=== PATIENT | male | born 1955 | race Caucasian/White ===

== ENCOUNTER 2018-06-28 10:40 | Day surgery (SDC) | payer OTHER ==
[2018-06-28] MEDS ORDERED: Ringers Lactate 1,000 ML IV ONE (11:04)
[2018-06-28] MEDS ORDERED: CEFAZOLIN 1GM (PREMIX IV) 1 GM/50 ML BAG ONE (11:04)
[2018-06-28 11:10] LABS: Absolute Monocytes 0.7 K/uL (0.1-1.3); Absolute Neutrophil 2.5 K/uL (1.8-8.0); Basophils % 0.8 % (0-1.3); Eosinophils % 1.3 % (0-4.4); Hematocrit 43.2 % (39.6-49.0); Lymphocytes % 24.2 % (15.3-44.8); MPV 10.1 fL (7.6-11.3); Monocytes % 15.4 % (3.3-12.3); RBC Red Blood Cell Count 4.16 M/uL (4.33-5.43)
[2018-06-28 11:24] LABS: BUN Blood Urea Nitrogen 12 mg/dL (7-18); Bicarbonate 27 mmol/L (21-32); Glucose Level 82 mg/dL (74-106); Potassium 4.3 mmol/L (3.5-5.1); Sodium Level 137 mmol/L (136-145)
--- NOTE | 2018-06-28 12:48 | EKG ---
Test Date: 2018-06-28 Test Time: 10:56:34 [facility]: [facility] MEASUREMENT RESULTS: Intervals: Rate: 49 DE: 146 QRSD: 86 QT: 460 QTc: 415 [place]: P: 75 DE: 146 QRS: 47 T: 72 INTERPRETIVE STATEMENTS: Marked sinus bradycardia Abnormal ECG Compared to ECG 01/02/2012 11:38:24 Sinus rhythm no longer present Electronically Signed On 06-28-18 12:47:19 RN BARIATRIC by Julian Dixon
[2018-06-28] MEDS ORDERED: PROPOFOL 200 MG/20 ML VIAL IV ONE (13:15)
[2018-06-28] MEDS ORDERED: FENTANYL CITR 100 MCG/2 ML ONE ×2 (13:16→13:45)
[2018-06-28] MEDS ORDERED: MIDAZOLAM HCL 2 MG/2 ML INJ ONE (13:16)
[2018-06-28] MEDS ORDERED: ONDANSETRON 4 MG/2 ML VIAL ONE (13:16)
[2018-06-28] MEDS ORDERED: LIDOCAINE 1% MPF 2 ML AMPULE ONE (13:16)
--- NOTE | 2018-06-28 14:03 | P.BOP ---
Preoperative diagnosis: left 1st metacarpal fracture Postoperative diagnosis: same Primary procedure: left 1st metacarpal crpp Estimated blood loss: <3ccs Anesthesia: General Complications: None Transferred to: Recovery Room Condition: Good
[2018-06-28] MEDS: MEPERIDINE HCL 50 MG/ML AMP ONE ×6 (14:10→14:40)
--- NOTE | 2018-06-28 14:21 | RAD REPORT ---
EXAM DESCRIPTION: RAD - Finger-Thumb Left - 06/28/2018 2:00 pm FINDINGS: Left thumb fracture repair There were 19 portable C-arm views obtained during fluoroscopic assisted placement of fracture fixati on hardware. No suspicious or unexpected finding. Fluoro time was 0.5 minutes.
[2018-06-28] MEDS ORDERED: TRAMADOL HCL 50 MG TAB ONE (16:12)
--- NOTE | 2018-06-29 02:12 | OP ---
Date of Procedure: 06/28/2018 Surgeon: Lucio Addison MD Preoperative Diagnosis: Left first metacarpal fracture, which is grossly displaced. Postoperative Diagnosis: Left first metacarpal fracture, which is grossly displaced. Procedure: Left first metacarpal closed reduction with percutaneous pin fixation. Estimated Blood Loss: Less than 3 cc. Complications: There were no complications. Specimen: No pathology specimens sent. Indications For Operation: Mr. Plata is a patient who unfortunately fell injuring his left upper ext remity. He was seen and examined in my office, where he had pain related to the first metacarpal. X -rays were taken, which demonstrated a comminuted and highly displaced first metacarpal fracture. Al l risks, benefits, and alternatives to operative fixation were discussed with both the patient and th e family. They stated they understood everything as presented and wished to proceed. Description Of Procedure: The patient was taken to the operating room and placed in supine position. General anesthesia was obtained by the staff. Following this, a well-padded tourniquet was placed on the superior left arm and was not used throughout the case. The left upper extremity was then pre pped and draped in usual sterile fashion. Following this, C-arm was brought in and biplanar C-arm ra diography were used to establish or obtain a reasonable reduction. Following this, two 0.045 K-wires were then placed through the distal first metacarpal into the metacarpal base as well as the trapezi um. These pins appeared to hold it quite well. Following this, the pins were bent. He was placed i n a well-padded dressing, a radial gutter splint, which is circumferential at the thumb. Awakened and taken to recovery room in good condition . There were no complications. SE/MODL Voice ID: [id number] Report ID: [id number]
== END 2018-06-28 17:00 | disposition home or self-care (01) ==
LOC: OR 10:40
PROVIDERS: ATTEND Orthopaedic Surgery
PROC: 0PSQ34Z Reposition Left Metacarpal with Internal Fixation Device, Percutaneous Approach (ICD-10-PCS; principal; 2018-06-28 12:00)
DX: S62.202A Unspecified fracture of first metacarpal bone, left hand, initial encounter for closed fracture (principal); Z72.0 Tobacco use
CPT/HCPCS: 26608; 36415; 80048; 85025; 93005; J0690; J2001; J2175 ×2; J2250; J2405; J2704; J3010 ×2

== ENCOUNTER 2018-12-12 14:27 | Emergency (ER) | payer OTHER ==
[2018-12-12 15:26] LABS: Absolute Lymphocytes (CBC) 0.9 K/uL (0.7-4.9); Absolute Monocytes 0.8 K/uL (0.1-1.3); Absolute Neutrophil 2.6 K/uL (1.8-8.0); Basophils % 0.7 % (0-1.3); Eosinophils % 0.7 % (0-4.4); Hematocrit 42.5 % (39.6-49.0); Lymphocytes % 20.7 % (15.3-44.8); MPV 10.2 fL (7.6-11.3); Monocytes % 17.6 % (3.3-12.3); RBC Red Blood Cell Count 4.21 M/uL (4.33-5.43)
[2018-12-12 15:41] LABS: ALT/SGPT 62 U/L (12-78); AST/SGOT 65 U/L (15-37); Albumin 3.6 g/dL (3.4-5.0); Alkaline Phosphatase 82 U/L (45-117); BUN Blood Urea Nitrogen 8 mg/dL (7-18); Bicarbonate 21 mmol/L (21-32); Bilirubin Total 0.6 mg/dL (0.2-1.0); Glucose Level 90 mg/dL (74-106); Potassium 4.1 mmol/L (3.5-5.1); Protein, Total 7.4 g/dL (6.4-8.2); Sodium Level 131 mmol/L (136-145)
[2018-12-12] MEDS ORDERED: ONDANSETRON 4 MG/2 ML VIAL ONE (15:44)
[2018-12-12] MEDS ORDERED: MORPHINE 4 MG/ML SYR ONE (15:44)
--- OUTSIDE RECORDS SUMMARY | 2018-12-12 16:00 | XMS REPORT | Encounter Summary ---
:1955 Author Care Team Providers Name Role Phone Otis Yap DO Primary Care Provider [phone] Reason for Visit New Patient Instructions 1. Left inguinal hernia inguinal hernia: care instructions Discussion Note: None recorded. Plan of Care Patient Instructions Follow up With technical training instructor Reminders Provider Appointments None recorded. Lab None recorded. Referral None recorded. Procedures None recorded. Surgeries None recorded. Imaging None recorded. Medications Name Start Date albuterol sulfate 2.5 mg/3 mL (0.083 %) solution for nebulization amoxicillin 500 mg-potassium clavulanate 125 mg tablet Breo Ellipta 200 mcg-25 mcg/dose powder for inhalation clotrimazole 10 mg james diphenoxylate-atropine 2.5 mg-0.025 mg tablet famotidine 40 mg tablet finasteride 5 mg tablet fluconazole 100 mg tablet gabapentin 600 mg tablet levofloxacin 500 mg tablet montelukast 10 mg tablet oxybutynin chloride ER 15 mg tablet,extended release 24 hr prednisone 10 mg tablet prednisone 5 mg tablet sulfamethoxazole 800 mg-trimethoprim 160 mg tablet Take 1 tablet twice a day by oral route for 7 days. Symbicort 160 mcg-4.5 mcg/actuation HFA aerosol inhaler tamsulosin 0.4 mg capsule tizanidine 4 mg tablet tramadol 50 mg tablet trazodone 50 mg tablet Medications Administered None recorded. Vitals Height Weight BMI Blood Pressure 5 ft 11 in 136.7 lbs 19.1 kg/m2 130/83 mm[Hg] Lab Results None recorded. Allergies Code Code System Name Reaction Severity Status Onset NKDA Problems No Known Problems Procedures None recorded. Vaccine List None recorded. Social History Smoking Status Current Every Day Smoker Past Encounters 11/28/2018 Left Inguinal Hernia Abraham Markham, DO: [address], [address], [place] [address], Ph. [phone] History of Present Illness Hernia Reported By: Patient HPI: Location: left, inguinal. Quality: tender. Severity: moderate. Duration: unknown. Onset/Timing: constant Note: left inguinal hernia. Tender and bulging Review of Systems General Surgery ROS Reported By: Patient Constitutional: Constitutional: no fever, no night sweats, no significant weight gain, no significant weight loss, no exercise intolerance Eyes: Eyes: no dry eyes, no irritation, no vision change ENMT: Ears: no difficulty hearing, no ear pain. Nose: no frequent nosebleeds, no nose/sinus problems. Mouth/Throat: no sore throat, no bleeding gums, no snoring, no dry mouth, no mouth ulcers, no oral abnormalities, no teeth problems, No Post Nasal Dripping, Constantly clearing the throat, hiccups, itching throat, (normal) weak voice: constant Respiratory: Respiratory: no cough, no wheezing, no shortness of breath, no coughing up blood Cardiovascular: Cardiovascular: no chest pain, no arm pain on exertion, no shortness of breath when walking, no shortness of breath when lying down, no palpitations, no known heart murmur Gastrointestinal: Gastrointestinal: no abdominal pain, no vomiting, normal appetite, no diarrhea, not vomiting blood Genitourinary: Genitourinary: no incontinence, no difficulty urinating, no hematuria, no increased frequency Musculoskeletal: Musculoskeletal: no muscle aches, no muscle weakness, no arthralgias/joint pain, no back pain, no swelling in the extremities Integumentary: Skin: no abnormal mole, no jaundice, no rashes Neurologic: Neurologic: no loss of consciousness, no weakness, no numbness, no seizures, no dizziness, no headaches Physical Exam General Surgery Exam (JYoung) Reported By: Patient Head: Head: normocephalic, atraumatic Neck: Neck: no enlargement, no jugular venous distention, no lymphadenopathy Breast/Thorax: Breast: unlabored Cardiovascular: Heart Auscultation: regular rate and rhythm, no murmurs, no gallops, no rubs Lungs: CTAB breath sounds normal, good air movement, clear to auscultation, no wheezing, no rales/crackles, no rhonchi Back: Lumbar / Lumbosacral Spine normal flexion, normal extension, no spasms, palpation tenderness none Abdomen: Inspection and Palpation: soft, non-distended, no tenderness, no masses. Hernia: none palpable, left inguinal Neurologic: Cranial Nerves: grossly intact
[2018-12-12] MEDS ORDERED: NA CHLORIDE 0.9% 1,000 ML ONE (16:13)
--- NOTE | 2018-12-12 17:05 | RAD REPORT ---
EXAM DESCRIPTION: CTAbdomen Pelvis W Contrast - 12/12/2018 4:26 pm CLINICAL HISTORY: Abdominal pain. lower abdominal pain, groin pain, IV ONLY COMPARISON: No comparisons TECHNIQUE: Biphasic CT imaging of the abdomen and pelvis was performed with 100 ml non-ionic IV cont rast. All CT scans are performed using dose optimization technique as appropriate and may include automated exposure control or mA/KV adjustment according to patient size. FINDINGS: Prominent emphysematous changes are present in the lung bases. Diffuse fatty liver is present. No focal lesion or intrahepatic biliary dilatation seen. The spleen, pancreas, adrenal glands and kidneys are within normal limits. No bowel obstruction, free air, free fluid or abscess. The appendix is normal. A small left inguinal hernia is present containing a small section of the sigmoid colon. There is no evidence of incarcera tion of the hernia. No evidence of significant lymphadenopathy. No suspicious bony findings. IMPRESSION: Small left inguinal hernia is noted containing a section of the sigmoid colon without shahzad wel obstruction. There is no finding seen to indicate hernia incarceration. Diffuse fatty liver.
--- NOTE | 2018-12-12 19:58 | EDPHYS ---
Physician Documentation [facility] Name: Chacorta Plata Age: 63 yrs Sex: Male : 1955 Arrival Date: 12/12/2018 Time: 14:32 Bed 23 Private MD: ED Physician Eloy Triana HPI: 12/12 14:46 This 63 yrs old Male presents to ER via Wheelchair with complaints of Hernia. jmm 14:46 The patient presents with left groin pain. Onset: The symptoms/episode began/occurred jmm gradually, 3 week(s) ago. Modifying factors: The symptoms are alleviated by supine position, the symptoms are aggravated by walking. Associated signs and symptoms: Pertinent negatives: fever, vomiting. This is a 63 year old male that presents to the ED with complaints of left groin pain beginning 3 week ago worsening today. Symptoms are worsened with standing. Patient denies vomiting. Denies fever. . Historical: - Allergies: 14:37 No Known Allergies; aj - Home Meds: 14:39 Famotidine Oral [Active]; montelukast oral oral [Active]; tamsulosin oral oral aj [Active]; gabapentin oral oral [Active]; trazodone Oral [Active]; Tramadol Oral [Active]; Albuterol Inhl [Active]; - PSHx: 14:37 Bowel resection; aj - Immunization history:: Adult Immunizations up to date. - Social history:: Smoking status: Patient uses tobacco products, smokes one pack cigarettes per day. Patient uses alcohol, claims drinking about a 6 pack/day. - Ebola Screening: : Patient negative for fever greater than or equal to 101.5 degrees Fahrenheit, and additional compatible Ebola Virus Disease symptoms Patient denies exposure to infectious person Patient denies travel to an Ebola-affected area in the 21 days before illness onset No symptoms or risks identified at this time. ROS: 14:46 Constitutional: Negative for fever, chills, and weight loss, Cardiovascular: Negative jm for chest pain, palpitations, and edema, Respiratory: Negative for shortness of breath, cough, wheezing, and pleuritic chest pain. 14:46 Abdomen/GI: Positive for abdominal pain, Negative for nausea and vomiting, diarrhea. 14:46 All other systems are negative. Exam: 14:46 Head/Face: atraumatic. Eyes: EOMI, no conjunctival erythema appreciated ENT: Moist jm Mucus Membranes Neck: Trachea midline, Supple Chest/axilla: Normal chest wall appearance and motion. Cardiovascular: Regular rate and rhythm. No edema appreciated Respiratory: Normal respirations, no respiratory distress appreciated 14:46 Back: Normal ROM Skin: General appearance color normal MS/ Extremity: Moves all extremities, no obvious deformities appreciated, no edema noted to the lower extremities Neuro: Awake and alert, normal gait Psych: Behavior is normal, Mood is normal, Patient is cooperative and pleasant 14:46 Constitutional: The patient appears alert, awake, uncomfortable. 14:46 Abdomen/GI: Hernia: noted in the left inguinal area, tenderness, that is moderate, reduceable. Vital Signs: 14:39 BP 126 / 70; Pulse 80; Resp 16; Temp 98.1; Pulse Ox 97% on R/A; Weight 62.6 kg; Height aj 5 ft. 11 in. (180.34 cm); 15:42 BP 120 / 72; Pulse 75; Resp 17 S; Temp 98(O); Pulse Ox 96% on R/A; ca1 16:45 BP 125 / 81; Pulse 75; Resp 18; Temp 98.1(O); Pulse Ox 95% on R/A; ca1 17:42 BP 118 / 77; Pulse 72; Resp 17 S; Temp 98(O); Pulse Ox 95% on R/A; ca1 18:40 BP 115 / 75; Pulse 70; Resp 16 S; Pulse Ox 99% on R/A; ca1 19:34 BP 113 / 71; Pulse 76; Resp 18 S; Temp 98.4(O); Pulse Ox 99% on R/A; ca1 20:00 BP 109 / 74 LA (auto/reg); Pulse 74; Resp 18 S; Temp 98.5(O); Pulse Ox 99% on R/A; jp3 14:39 Body Mass Index 19.25 (62.60 kg, 180.34 cm) aj MDM: 14:46 Patient medically screened. rosio 19:57 Data reviewed: vital signs, nurses notes. Counseling: I had a detailed discussion with rosio the patient and/or guardian regarding: the historical points, exam findings, and any diagnostic results supporting the discharge/admit diagnosis, radiology results, the need for outpatient follow up, to return to the emergency department if symptoms worsen or persist or if there are any questions or concerns that arise at home. 20:45 ED course: CT is negative for incarceration or strangulation. Patient's pain is jmm relieved in the ED. Patient is advised to follow up with gen surgery for further evaluation. Patient understood and agrees with the plan of care. . 12/12 14:51 Order name: CBC with Diff; Complete Time: 15:53 [facility] 12/12 14:51 Order name: CMP; Complete Time: 15:53 [facility] 12/12 14:51 Order name: Lactate; Complete Time: 15:53 [facility] 12/12 17:15 Order name: Lactate; Complete Time: 20:45 [facility] 12/12 18:41 Order name: Lactate Sepsis 2 HR Follow-up; Complete Time: 19:05 [facility] 12/12 14:51 Order name: CT Abd/Pelvis - W/Contrast; Complete Time: 17:07 [facility] 12/12 14:51 Order name: Saline Lock; Complete Time: 14:58 jmm Administered Medications: 15:27 Drug: Zofran 4 mg Route: IVP; Site: right forearm; ca1 19:02 Follow up: Response: No adverse reaction; Nausea is decreased ca1 15:30 Drug: morphine 4 mg Route: IVP; Site: right forearm; ca1 19:02 Follow up: Response: No adverse reaction; Pain is decreased ca1 15:57 Drug: NS 0.9% 1000 ml Route: IV; Rate: 1 bolus; Site: right forearm; ca1 17:00 Follow up: Response: No adverse reaction; IV Status: Completed infusion ca1 Disposition: 12/13 06:57 Co-signature as Attending Physician, Eloy Triana MD I agree with the assessment and kdr plan of care. Disposition: 12/12/18 19:57 Discharged to Home. Impression: Inguinal hernia. - Condition is Stable. - Discharge Instructions: Inguinal Hernia, Adult. - Prescriptions for Tylenol- Codeine #3 300-30 mg Oral Tablet - take 1 tablet by ORAL route every 6 hours As needed; 20 tablet. - Medication Reconciliation Form, Thank You Letter, Antibiotic Education, Prescription Opioid Use form. - Follow up: Colton Macias MD; When: 2 - 3 days; Reason: Recheck today's complaints, Continuance of care, Re-evaluation by your physician. Signatures: Dispatcher [employer] EDMS Renea Ta RN RN Eloy Crockett MD MD kdr Mickail, Joel, PA PA jmm Acob, Cheryl, RN RN ca1 Corrections: (The following items were deleted from the chart) 12/12 18:00 17:17 Lactate ordered. [facility] EDAZ 20:28 19:57 12/12/2018 19:57 Discharged to Home. Impression: Inguinal hernia. Condition is ca1 Stable. Forms are Medication Reconciliation Form, Thank You Letter, Antibiotic Education, Prescription Opioid Use. Follow up: Colton Macias; When: 2 - 3 days; Reason: Recheck today's complaints, Continuance of care, Re-evaluation by your physician. rosio
--- NOTE | 2018-12-12 19:58 | ER ---
Nurse's Notes [facility] Name: Chacorta Plata Age: 63 yrs Sex: Male : 1955 Arrival Date: 12/12/2018 Time: 14:32 Bed 23 Private MD: Diagnosis: Inguinal hernia Presentation: 12/12 14:36 Presenting complaint: Patient states: Hernia to left groin for 3 weeks that got worse aj yesterday. Transition of care: patient was not received from another setting of care. Onset of symptoms was December 11, 2018. Risk Assessment: Do you want to hurt yourself or someone else? Patient reports no desire to harm self or others. Initial Sepsis Screen: Does the patient meet any 2 criteria? No. Patient's initial sepsis screen is negative. Does the patient have a suspected source of infection? No. Patient's initial sepsis screen is negative. Care prior to arrival: None. 14:36 Method Of Arrival: Wheelchair aj 14:36 Acuity: JESSIE 3 aj Triage Assessment: 14:39 General: Appears in no apparent distress. uncomfortable, Behavior is calm, cooperative, aj appropriate for age. Pain: Complains of pain in left femoral area. Neuro: Level of Consciousness is awake, alert, obeys commands, Oriented to person, place, time, situation, Appropriate for age. Respiratory: Airway is patent Respiratory effort is even, unlabored, Respiratory pattern is regular, symmetrical. Derm: Skin is intact, is healthy with good turgor, Skin is pink, warm \T\ dry. normal. Musculoskeletal: Reports pain in left femoral area. Historical: - Allergies: 14:37 No Known Allergies; aj - Home Meds: 14:39 Famotidine Oral [Active]; montelukast oral oral [Active]; tamsulosin oral oral aj [Active]; gabapentin oral oral [Active]; trazodone Oral [Active]; Tramadol Oral [Active]; Albuterol Inhl [Active]; - PSHx: 14:37 Bowel resection; aj - Immunization history:: Adult Immunizations up to date. - Social history:: Smoking status: Patient uses tobacco products, smokes one pack cigarettes per day. Patient uses alcohol, claims drinking about a 6 pack/day. - Ebola Screening: : Patient negative for fever greater than or equal to 101.5 degrees Fahrenheit, and additional compatible Ebola Virus Disease symptoms Patient denies exposure to infectious person Patient denies travel to an Ebola-affected area in the 21 days before illness onset No symptoms or risks identified at this time. Screenin:45 Abuse screen: Denies threats or abuse. Denies injuries from another. Nutritional ca1 screening: No deficits noted. Tuberculosis screening: No symptoms or risk factors identified. Fall Risk IV access (20 points). Ambulatory Aid- Crutches/Cane/Walker (15 pts). Assessment: 14:45 General: Appears in no apparent distress. uncomfortable, Behavior is calm, cooperative, ca1 appropriate for age. Pain: Complains of pain in pelvis and left femoral area Pain does not radiate. Pain currently is 8 out of 10 on a pain scale. Pain began few days ago Is continuous. Neuro: Level of Consciousness is awake, alert, obeys commands, Oriented to person, place, time, situation. Cardiovascular: Heart tones S1 S2 present Capillary refill < 3 seconds Patient's skin is warm and dry. Respiratory: Airway is patent is compromised Respiratory effort is even, unlabored, Respiratory pattern is regular, symmetrical, Breath sounds are clear bilaterally. GI: Abdomen is flat, non-distended, Bowel sounds present X 4 quads. Abd is soft X 4 quads. GI: : Urine is clear. : Reports pain at left groin. EENT: No deficits noted. No signs and/or symptoms were reported regarding the EENT system. EENT: Derm: Skin is intact, is healthy with good turgor, Skin is pink, warm \T\ dry. Musculoskeletal: Circulation, motion, and sensation intact. Capillary refill < 3 seconds. 15:42 Reassessment: Patient appears in no apparent distress at this time. Patient and/or ca1 family updated on plan of care and expected duration. Pain level reassessed. Patient is alert, oriented x 3, equal unlabored respirations, skin warm/dry/pink. 16:27 Reassessment: Pt to CT scan. ca1 16:45 Reassessment: Patient appears in no apparent distress at this time. Patient and/or ca1 family updated on plan of care and expected duration. Pain level reassessed. Patient is alert, oriented x 3, equal unlabored respirations, skin warm/dry/pink. 17:42 Reassessment: Patient appears in no apparent distress at this time. Patient and/or ca1 family updated on plan of care and expected duration. Pain level reassessed. Patient is alert, oriented x 3, equal unlabored respirations, skin warm/dry/pink. Reassessment:. 19:56 Reassessment: Patient appears in no apparent distress at this time. Patient and/or ca1 family updated on plan of care and expected duration. Pain level reassessed. Patient is alert, oriented x 3, equal unlabored respirations, skin warm/dry/pink. 20:19 Reassessment: Patient appears in no apparent distress at this time. Pt verbalized ca1 understanding follow up check up with general surgeon. PT also states he will be picked up by his brother and would like to wait at the lobby for him. 20:25 Reassessment: Left VM to pt's bother at [phone]. ca1 Vital Signs: 14:39 BP 126 / 70; Pulse 80; Resp 16; Temp 98.1; Pulse Ox 97% on R/A; Weight 62.6 kg; Height aj 5 ft. 11 in. (180.34 cm); 15:42 BP 120 / 72; Pulse 75; Resp 17 S; Temp 98(O); Pulse Ox 96% on R/A; ca1 16:45 BP 125 / 81; Pulse 75; Resp 18; Temp 98.1(O); Pulse Ox 95% on R/A; ca1 17:42 BP 118 / 77; Pulse 72; Resp 17 S; Temp 98(O); Pulse Ox 95% on R/A; ca1 18:40 BP 115 / 75; Pulse 70; Resp 16 S; Pulse Ox 99% on R/A; ca1 19:34 BP 113 / 71; Pulse 76; Resp 18 S; Temp 98.4(O); Pulse Ox 99% on R/A; ca1 20:00 BP 109 / 74 LA (auto/reg); Pulse 74; Resp 18 S; Temp 98.5(O); Pulse Ox 99% on R/A; jp3 14:39 Body Mass Index 19.25 (62.60 kg, 180.34 cm) aj ED Course: 14:32 Patient arrived in ED. mr 14:37 Triage completed. aj 14:39 Arm band placed on right wrist. Patient placed in an exam room. aj 14:42 Cole Gonzales PA is PHCP. [facility] 14:42 Eloy Triana MD is Attending Physician. jmm 14:45 Urine collected: clean catch specimen, clear, handy colored. jp3 14:50 Placed in gown. Bed in low position. Call light in reach. Side rails up X 1. Side rails jp3 up X2. Warm blanket given. Pillow given. Pulse ox on. NIBP on. 14:50 pt placed in Trendelenburg position. jp3 14:55 Initial lab(s) drawn, by me, sent to lab. Inserted saline lock: 20 gauge in right jp3 forearm, using aseptic technique. Blood collected. 14:59 Fani Mckay, RN is Primary Nurse. ca1 15:18 Lactate Sent. jp3 15:18 CBC with Diff Sent. jp3 15:18 CMP Sent. jp3 16:28 CT Abd/Pelvis - W/Contrast In Process Unspecified. EDMS 19:57 Colton Macias MD is Referral Physician. jmm 20:08 Lactate Sent. ca1 20:20 No provider procedures requiring assistance completed. IV discontinued, intact, ca1 bleeding controlled, No redness/swelling at site. Pressure dressing applied. Administered Medications: 15:27 Drug: Zofran 4 mg Route: IVP; Site: right forearm; ca1 19:02 Follow up: Response: No adverse reaction; Nausea is decreased ca1 15:30 Drug: morphine 4 mg Route: IVP; Site: right forearm; ca1 19:02 Follow up: Response: No adverse reaction; Pain is decreased ca1 15:57 Drug: NS 0.9% 1000 ml Route: IV; Rate: 1 bolus; Site: right forearm; ca1 17:00 Follow up: Response: No adverse reaction; IV Status: Completed infusion ca1 Output: 16:28 Urine: 280ml (Voided); Total: 280ml. ca1 16:57 Urine: 270ml (Voided); Total: 550ml. ca1 19:34 Urine: 430ml (Voided); Total: 980ml. ca1 Outcome: 19:57 Discharge ordered by . jmm 20:20 Discharged to home via wheelchair. ca1 20:20 Condition: stable 20:20 Discharge instructions given to patient, Instructed on discharge instructions, follow up and referral plans. medication usage, Demonstrated understanding of instructions, follow-up care, medications, Prescriptions given X 1. 20:28 Patient left the ED. ca1 Signatures: Dispatcher [employer] Renea Nielsen, RADHA RN Cole Pickett PA PA jmm Rivera, Mary mr AyadKeenan jp3 Fani Mckay RN RN ca1 Corrections: (The following items were deleted from the chart) 16:56 16:45 Pulse 75bpm; Resp 18bpm; Pulse Ox 95% RA; Temp 98.1F Oral; ca1 ca1
== END 2018-12-12 20:28 | disposition home or self-care (01) ==
LOC: ER 14:27
DX: K40.90 Unilateral inguinal hernia, without obstruction or gangrene, not specified as recurrent (principal); F17.210 Nicotine dependence, cigarettes, uncomplicated
CPT/HCPCS: 96361; 85025; 36415; 83605 ×2; 80053; 74177; 96375; 96374; 99284; Q9967; J7030; J2405

== ENCOUNTER → 2022-03-03 | Day surgery (SDC) | payer OTHER ==
[2022-03-01 11:27] LABS: Absolute Lymphocytes (CBC) 1.6 K/uL (0.7-4.9); Hematocrit 42.3 % (39.6-49.0); Lymphocytes % 25.2 % (15.3-44.8); MCV 103.7 fL (80-100); MPV 9.5 fL (7.6-11.3); RBC Red Blood Cell Count 4.08 M/uL (4.33-5.43)
[2022-03-01 11:33] LABS: SARS-CoV-2 Antigen Rapid Res Negative (Negative)
[~2022-03-03] MED LIST: FENTANYL CITR 100 MCG/2 ML ONE; HYDROCODONE/APAP 7.5/325 MG TAB PO PRN; LIDOCAINE 1% MPF 30 ML VIAL ONE; LIDOCAINE 2% MPF 5 ML VIAL ONE; MIDAZOLAM HCL 2 MG/2 ML INJ ONE; Mastisol Adhesive Liq ONE; NS 0.9% VIAL 20 ML ONE; ONDANSETRON 4 MG/2 ML VIAL ONE; propofoL 200 MG/20 ML VIAL IV ONE
[2022-03-03] MEDS: Ringers Lactate 1,000 ML IV ONE ×2 (07:28→07:53)
[2022-03-03] MEDS: CEFAZOLIN SODIUM 1 GM/VIAL ONE ×2 (07:34→07:45)
[2022-03-03] MEDS: HEPARIN 5000 UNIT/ML 1 ML VIAL ONE ×2 (07:51→08:15)
--- NOTE | 2022-03-03 08:31 | P.OP ---
Date of Service: 03/03/22 Preop diagnosis: Esophageal cancer Postop diagnosis: Same Procedure performed: Placement of right IJ Port-A-Cath, interpretation of in traoperative fluoroscopy Surgeon: Rex Smith MD Chair Caner: None Estimated blood loss: Minimal Specimen: None Findings: Normal anatomy Anesthesia: General Complications: None Drains: None Fluids and blood products: Nonapplicable Disposition: Recovery room Operative note: Patient brought to the OR and placed in supine position. General anesthesia begun. Patient prepped and draped in usual sterile fashion. Lidocaine 1% infiltrated locally. 18-gauge needle used to access the right internal jugular vein. Guidewire passed. Position confirmed under fluoroscopy. 3 cm counterincision made on the right anterior chest. A pocket created. Tunneling device used to tunnel the catheter between the 2 wounds. Seldinger technique used and the tip of the catheter placed in the SVC under fluoroscopy. Catheter cut to appropriate size and attached to the Port-A-Cath device. Port-A-Cath device attached to the subcutaneous tissue with 3-0 Vicryl. Then 3- 0 chromic used to reapproximate subcutaneous tissue and close skin. Port flushed with heparin and packed with heparin with good blood flow. Sterile dressing applied. Patient awakened and taken to recovery room in good general condition. CC: Dr. Haney's office
--- NOTE | 2022-03-03 09:07 | RAD REPORT ---
EXAM DESCRIPTION: RAD - Chest Single View - 03/03/2022 8:54 am CLINICAL HISTORY: S/P Port-A-Cath placement COMPARISON: Chest Single View dated 04/30/2020; CHEST PA AND LAT 2 VIEW dated 01/02/2012; Thorax W/ C on dated 01/04/2022 FINDINGS: Lines: Right IJ approach Port-A-Cath with tip overlying the SVC . Lungs: No evidence of edema or pneumonia. Pleural: No significant pleural effusions or pneumothorax. Cardiac: The heart size is within normal limits. Bones: No acute fractures. Other: IMPRESSION: No acute cardiopulmonary disease.
--- NOTE | 2022-03-03 09:50 | RAD REPORT ---
EXAM DESCRIPTION: RAD - Fluoroscopy <1 Hour - 03/03/2022 8:15 am CLINICAL HISTORY: PORT A CATH COMPARISON: No comparisons FINDINGS/IMPRESSION: Two intraoperative fluoroscopic images were submitted demonstrating a port plac ement. The tip overlies the SVC. Fluoro time: 0.3 minutes Cumulative dose: 1.64 mGy
[2022-03-03 10:13] VITALS: BP 124/70; TEMP 96.7; O2SAT 93
== END | disposition home or self-care (01) ==
LOC: OR 06:35
PROVIDERS: ATTEND Surgery
PROC: 0JH60WZ Insertion of Totally Implantable Vascular Access Device into Chest Subcutaneous Tissue and Fascia, Open Approach (ICD-10-PCS; principal; 2022-03-03 07:30)
DX: C15.9 Malignant neoplasm of esophagus, unspecified (principal); Z20.822 Contact with and (suspected) exposure to COVID-19
CPT/HCPCS: 85025; 36415; 71045; 87811; 36561; J2704; J1644 ×2; J2250; J3010; J7120; J2405; J0690; C1788; 76000

== ENCOUNTER 2022-05-05 18:04 | Emergency (ER) | payer OTHER ==
--- OUTSIDE RECORDS SUMMARY | 2022-05-05 18:09 | XMS REPORT | Continuity of Care Document ---
:1955 Author Organization [facility] t Address [address] [place] [address] Dr. Hdz [address] [place] [address] Care Team Providers Name Role Phone Beulah Ndiaye Primary Care Physician CYNTHIA VINCENT Attending Clinician Unavailable ESTEPHANIA Attending Clinician Unavailable Fco Attending Clinician Unavailable DR SHARMIN HAWK Attending Clinician Unavailable ESTEPHANIA Admitting Clinician Unavailable Fco Admitting Clinician Unavailable DR SHARMIN HAWK Admitting Clinician Unavailable Payers Payer Name Policy Type Policy Number Effective Date Expiration Date Jackson anne MEDICARE PLAN PPO - [id number] AETNA AETNA (MEDICARE [id number] 2016 REPLACEMENT PPO) 00:00:00 Problems This patient has no known problems. Allergies, Adverse Reactions, Alerts This patient has no known allergies or adverse reactions. Family History Family Member Diagnosis Comments Start Date Stop Date Source Natural father Cancer [facility] Social History Social Habit Start Date Stop Date Quantity Comments Source History of tobacco Smokes tobacco [facility] use daily Hospital Alcohol intake 2019-01-01 2019-01-01 .71 /d Buddhist 00:00:00 00:00:00 Hospital History [facility] 2019-01-01 2019-01-01 5 Buddhist Alcohol Frequency 00:00:00 00:00:00 Hospita l History [facility] 2019-01-01 2019-01-01 3 Buddhist Alcohol Std Drinks 00:00:00 00:00:00 Hospit al History [facility] 2019-01-01 2019-01-01 5 Buddhist Alcohol Binge 00:00:00 00:00:00 Hospital Cigarettes smoked 2019-01-01 2019-01-01 [facility] current (pack per 00:00:00 00:00:00 [facility] day) - Reported Cigarette 2019-01-01 2019-01-01 Buddhist pack-years 00:00:00 00:00:00 Hospital Tobacco use and 2019-01-01 2019-01-01 Smokeless tobacco [facility] exposure 00:00:00 00:00:00 non-user Hospital Sex Ass[birth year] At [birth year] [facility] 00:00:00 00:00:00 Hospital Smoking Status Start Date Stop Date Source Smokes tobacco daily 2019-01-01 00:00:00 [facility] Medications Ordered Filled Start Stop Current Ordering Indication Dosage Frequency Signature Comments Components Source Medication Medication Date Date Medication? Clinician (SIG) Name Name acetaminoph Yes TAKE 1 Meth paola en-codeine 5-[address] (TYLENOL 00:00: MOUTH Hospita WITH 00 EVERY 6 l CODEINE #3) HOURS 300-30 mg NEEDED FOR per tablet PAIN CONTROL SYMBICORT Yes Methodi 160-4.5 5-13 st mcg/actuati 00:00: Hospit a on inhaler 00 l acetaminoph acetaminoph No acetaminop [place] en 300 en 300 hen 300 da mg-codeine mg-codeine mg-codeine Medical 30 mg 30 mg 30 mg Group tablet tablet tablet albuterol albuterol No albuterol [place] sulfate 2.5 sulfate 2.5 sulfate da mg/3 mL mg/3 mL 2.5 mg/3 Medic al (0.083 %) (0.083 %) mL (0.083 Group solution solution %) for for solution nebulizatio nebulizatio for n n nebulizati on amoxicillin amoxicillin No amoxicilli [place] 500 500 n 500 da mg-potassiu mg-potassiu mg-potassi Medical m m um Group clavulanate clavulanate clavulanat 125 mg 125 mg e 125 mg tablet tablet tablet Breo Breo No Breo [place] Ellipta 200 Ellipta 200 Ellipta da mcg-25 mcg-25 200 mcg-25 Medic al mcg/dose mcg/dose mcg/dose Robert up powder for powder for powder for inhalation inhalation inhalation clotrimazol clotrimazol No clotrimazo [place] e 10 mg e 10 mg le 10 mg da [facility] diphenoxyla diphenoxyla No diphenoxyl [place] te-atropine te-atropine ate-atropi da 2.5 2.5 ne 2.5 Medical mg-0.025 mg mg-0.025 mg mg-0.025 Group tablet tablet mg tablet famotidine famotidine No famotidine [place] 40 mg 40 mg 40 mg da tablet tablet tablet Medical Group finasteride finasteride No finasterid [place] 5 mg tablet 5 mg tablet e 5 mg da tablet Medical Group fluconazole fluconazole No fluconazol [place] 100 mg 100 mg e 100 mg da tablet tablet tablet Medical Group gabapentin gabapentin No gabapentin [place] 600 mg 600 mg 600 mg da tablet tablet tablet Medical Group levofloxaci levofloxaci No levofloxac [place] n 500 mg n 500 mg in 500 mg da tablet tablet tablet Medical Group montelukast montelukast No montelukas [place] 10 mg 10 mg t 10 mg da tablet tablet tablet Medical Group oxybutynin oxybutynin No oxybutynin [place] chloride ER chloride ER chloride da 15 mg 15 mg ER 15 mg Medical tablet,exte tablet,exte tablet,ext Group nded nded ended release 24 release 24 release 24 hr hr hr prednisone prednisone No prednisone [place] 10 mg 10 mg 10 mg da tablet tablet tablet Medical Group prednisone prednisone No prednisone [place] 5 mg tablet 5 mg tablet 5 mg d a tablet Medical Group sulfamethox sulfamethox No sulfametho [facility] azole 800 azole 800 xazole 800 da mg-trimetho mg-trimetho mg-trimeth Medical prim 160 mg prim 160 mg oprim 160 Group tablet Take tablet Take mg tablet 1 tablet 1 tablet Take 1 twice a day twice a day tablet by oral by oral twice a route for 7 route for 7 day by days. days. oral route for 7 days. Symbicort Symbicort No Symbicort [place] 160 mcg-4.5 160 mcg-4.5 160 d a mcg/actuati mcg/actuati mcg-4.5 Medical on HFA on HFA mcg/actuat Group aerosol aerosol ion HFA inhaler inhaler aerosol inhaler tamsulosin tamsulosin No tamsulosin [facility] 0.4 mg 0.4 mg 0.4 mg da capsule capsule capsule Medica l Group tizanidine tizanidine No tizanidine [place] 4 mg tablet 4 mg tablet 4 mg d a tablet Medical Group tramadol 50 tramadol 50 No tramadol [place] mg tablet mg tablet 50 mg da tablet Medical Group trazodone trazodone No trazodone [place] 50 mg 50 mg 50 mg da tablet tablet tablet Medical Group Vital Signs Vital Name Observation Time Observation Value Comments Source BP Diastolic 2019-01-23 00:00:00 68 mm[Hg] [facility] Height 2019-01-23 00:00:00 71 [in_i] [facility] BMI (Body Mass 2019-01-23 00:00:00 19.2 kg/m2 [facility] Medical Index) Group BP Systolic 2019-01-23 00:00:00 128 mm[Hg] [facility] Body Weight 2019-01-23 00:00:00 138 [lb_av] [facility] BP Diastolic 2019-01-09 00:00:00 76 mm[Hg] [facility] Height 2019-01-09 00:00:00 71 [in_i] [facility] BMI (Body Mass 2019-01-09 00:00:00 19.2 kg/m2 [facility] Medical Index) Group BP Systolic 2019-01-09 00:00:00 132 mm[Hg] [facility] Body Weight 2019-01-09 00:00:00 138 [lb_av] [facility] BP Diastolic 2018-11-28 00:00:00 83 mm[Hg] [facility] Height 2018-11-28 00:00:00 71 [in_i] [facility] BMI (Body Mass 2018-11-28 00:00:00 19.1 kg/m2 [facility]) Group BP Systolic 2018-11-28 00:00:00 130 mm[Hg] [facility] Body Weight 2018-11-28 00:00:00 136.7 [lb_av] [facility] Procedures This patient has no known procedures. Plan of Care Planned Activity Planned Date Details Comments Source Future Scheduled Test 2022-04-16 HEPATITIS B VACCINES [facility] 11:43:08 (1 of 3 - 3-dose series) [code = HEPATITIS B VACCINES (1 of 3 - 3-dose series)] Future Scheduled Test 2022-04-16 COVID-19 VACCINE (#1) [facility] 11:43:08 [code = COVID-19 VACCINE (#1)] Future Scheduled Test 2022-04-16 COLONOSCOPY SCREENING [facility] 11:43:08 [code = COLONOSCOPY SCREENING] Future Scheduled Test 2022-04-16 SHINGLES VACCINES (1 [facility] 11:43:08 of 2) [code = SHINGLES VACCINES (1 of 2)] Future Scheduled Test 2022-04-16 INFLUENZA VACCINE [facility] 11:43:08 [code = INFLUENZA VACCINE] Future Scheduled Test 2022-04-16 65+ PNEUMOCOCCAL [facility] 11:43:08 VACCINE (1 - PCV) [code = 65+ PNEUMOCOCCAL VACCINE (1 - PCV)] Instructions [facility] Encounters Start End Encounter Admission Attending Care Care Encounter Source Date/Time Date/Time Type Type Clinicians Facility Department ID 2022-04-12 Outpatient [facility] [id number] Common 08:38:01 [facility] 2022-03-28 Outpatient STLMLC [facility] [id number] Common 09:40:02 [facility] 2022-03-07 Outpatient [facility] [id number] Common 11:01:02 [facility] 2022-01-24 [facility] [id number] Common 14:15:01 [facility] 2021-08-10 [facility] [id number] Common 12:51:04 [id number] [facility] 2022-02-16 2022-02-16 Outpatient REMA VINCENT BCYaquelin [id number] [facility] 15:27:04 16:06:54 CYNTHIA dominguez of Medicin e 2022-01-25 2022-01-25 Outpatient DESAI_RANATAHLIA [facility] 735 [place] 01:59:00 01:59:00 H 0713 da [facility] Outre [facility] Program 2020-06-02 2020-06-02 [place] [id number] [place] 02:27:00 02:27:00 [id number] Medical Group 2019-04-15 2019-04-26 Inpatient Gigi KENN JANINAROGELIO [facility] [id number] [facility] 22:19:00 13:45:00 [facility] 2019-01-23 2019-01-23 Abraham MM [place] - [id number] M [facility] 00:00:00 00:00:00 Rashi DO: [facility] petit a [address] [place] [address] - [place] [address], [place] [address] , Ph. [phone] 2019-01-09 2019-01-09 Abraham CONDE [place] - [id number] M [facility] 00:00:00 00:00:00 Rashi DO: [facility] marisabel cunningham [address] [place] [address] - [address], [facility] [address] , Ph. [phone] 2018-11-28 2018-11-28 Abraham MM [place] - [id number] M [facility] 00:00:00 00:00:00 Rashi DO: [facility] petit a [address] [place] [address] - [place] [address], [place] [place] [address] , Ph. [phone] Results Test Description Test Time Test Comments Results Result Comments Source URINE CULTURE 2019-05-02 10:30:00 Test Item Value Reference Range Interpretation Comme nts Culture Observations (test code = COB1) NO GROWTH (<1,000 CFU/ML) [id number] 07:01:00 Test Item Value Reference Range Interpretation Comments COLOR (test code = COLU) YELLOW YELLOW CLARITY (test code = CLA) CLEAR CLEAR GLUCOSE UR (test code = UA GLUCOSE) NEGATIVE NEGATIVE BILI UR (test code = BILE) NEGATIVE NEGATIVE KETONES UR (test code = SEBAS) NEGATIVE NEGATIVE SP GRAVITY (test code = SPGR) 1.011 1.005-1.030 PH UR (test code = PH) 7.0 4.5-8.0 PROTEIN UR (test code = PU) NEGATIVE NEGATIVE UROBIL UR (test code = UROQ) 0.2 EU/dL 0.2-1.0 NITRITE UR (test code = NITRITE) NEGATIVE NEGATIVE BLOOD UR (test code = UA BLOOD) NEGATIVE NEGATIVE LEUK ES UR (test code = LEUK) NEGATIVE NEGATIVE BASIC METABOLIC [id number] 01:03:00 Test Item Value Reference Range Interpretation Comments GLUCOSE (test code = 06D) 91 mg/dL 75-100 SODIUM (test code = 01A) 140 mmol/L 136-145 POTASSIUM (test code = 01B) 3.5 mmol/L 3.6-5.1 L CHLORIDE (test code = 04A) 106 mmol/L 98-107 CO2 (test code = 02A) 26 mmol/L 22-32 ANION GAP (test code = ANG) 11.5 mmol/L BUN (test code = 05D) 9 mg/dL 7-18 CREATININE (test code = 03E) 0.9 mg/dL 0.7-1.3 BUN/CREA (test code = BCR) 11 12-20 L CALCIUM (test code = 09D) 7.9 mg/dL 8.3-9.5 L CBC (INCLUDES AUTOMATED DIFFERENTIAL)2019-04-30 00:45:00 Test Item Value Reference Range Interpretation Comments WBC (test code = WBC) 6.5 10\S\3/uL 4.5-11.0 RBC (test code = RBC) 2.78 10\S\6/uL 4.20-5.60 L HGB (test code = HBG) 9.4 g/dL 14.0-18.0 L HCT (test code = HCT) 29.2 % 35.0-46.0 L MCV (test code = MCV) 105.0 fL 80.0-94.0 H MCH (test code = MCH) 33.8 pg 27.0-31.0 H MCHC (test code = MCHC) 32.2 g/dL 32.0-36.0 RDW (test code = RDW) 14.3 % 11.5-14.5 PLT (test code = PLT) 209 10\S\3/uL 130-400 MPV (test code = MPV) 12.5 fL 9.4-12.4 H NEUTROP # (test code = NE#) 4.3 10\S\3/uL 2.0-8.0 LYMPH # (test code = LY#) 1.2 10\S\3/uL 1.2-4.0 MONOCYTE # (test code = MO#) 0.9 10\S\3/uL 0.0-1.1 EOSINOPH # (test code = EO#) 0.1 10\S\3/uL 0.0-0.7 BASOPHIL # (test code = BA#) 0.0 10\S\3/uL 0.0-0.3 IG # (test code = IG#) 0.03 10\S\3/uL 0.00-0.06 NRBC # (test code = NRBC#) 0.00 10\S\3/uL 0.00-0.01 NEUTROPH % (test code = NE%) 65.2 % 35.0-73.0 LYMPH % (test code = LY%) 18.2 % 20.0-55.0 L MONO % (test code = MO%) 14.2 % 2.5-10.0 H EOSINOPH % (test code = EO%) 1.4 % 0.0-5.0 BASOPHIL % (test code = BA%) 0.5 % 0.0-2.0 IG % (test code = IG%) 0.5 % 0.0-0.8 NRBC% (test code = NRBC%) 0.0 % 0.0-0.2 MANDIFF (test code = MDIFF) NO NO RBC MORPH (test code = RBCMOR) NORMAL XR CHEST 2 [id number] 13:08:04PA and lateral chest, 2 viewsLocation code: [id number] HISTORY: Pleural effusionCOMPARISON: 04/21/19, CT dated 04/22/19COMMENTS: Mild central congestion remains. Left mild bibasilar airspace diseaseandsmall effusions appear stable. The cardiomediastinal fluid is stable. Leftsubclavian central venous catheter remains. IMPRESSION: Stable mild congestion and edema with bibasilar atelectasis and/orpneumonia and small bilateral effusions.BASIC METABOLIC [id number] 06:13:00 Test Item Value Reference Range Interpretation Comments GLUCOSE (test code = 06D) 82 mg/dL 75-100 SODIUM (test code = 01A) 139 mmol/L 136-145 POTASSIUM (test code = 01B) 3.8 mmol/L 3.6-5.1 CHLORIDE (test code = 04A) 103 mmol/L 98-107 CO2 (test code = 02A) 31 mmol/L 22-32 ANION GAP (test code = ANG) 8.8 mmol/L BUN (test code = 05D) 12 mg/dL 7-18 CREATININE (test code = 03E) 0.9 mg/dL 0.7-1.3 BUN/CREA (test code = BCR) 14 12-20 CALCIUM (test code = 09D) 8.4 mg/dL 8.3-9.5 CBC (INCLUDES AUTOMATED DIFFERENTIAL)2019-04-26 06:11:00 Test Item Value Reference Range Interpretation Comments WBC (test code = WBC) 9.0 10\S\3/uL 4.5-11.0 RBC (test code = RBC) 2.60 10\S\6/uL 4.20-5.60 L HGB (test code = HBG) 9.1 g/dL 14.0-18.0 L HCT (test code = HCT) 27.1 % 35.0-46.0 L MCV (test code = MCV) 104.2 fL 80.0-94.0 H MCH (test code = MCH) 35.0 pg 27.0-31.0 H MCHC (test code = MCHC) 33.6 g/dL 32.0-36.0 RDW (test code = RDW) 14.3 % 11.5-14.5 PLT (test code = PLT) 212 10\S\3/uL 130-400 MPV (test code = MPV) 11.8 fL 9.4-12.4 NEUTROP # (test code = NE#) 6.4 10\S\3/uL 2.0-8.0 LYMPH # (test code = LY#) 1.1 10\S\3/uL 1.2-4.0 L MONOCYTE # (test code = MO#) 1.2 10\S\3/uL 0.0-1.1 H EOSINOPH # (test code = EO#) 0.2 10\S\3/uL 0.0-0.7 BASOPHIL # (test code = BA#) 0.0 10\S\3/uL 0.0-0.3 IG # (test code = IG#) 0.08 10\S\3/uL 0.00-0.06 H NRBC # (test code = NRBC#) 0.00 10\S\3/uL 0.00-0.01 NEUTROPH % (test code = NE%) 70.5 % 35.0-73.0 LYMPH % (test code = LY%) 12.3 % 20.0-55.0 L MONO % (test code = MO%) 13.5 % 2.5-10.0 H EOSINOPH % (test code = EO%) 2.7 % 0.0-5.0 BASOPHIL % (test code = BA%) 0.1 % 0.0-2.0 IG % (test code = IG%) 0.9 % 0.0-0.8 H NRBC% (test code = NRBC%) 0.0 % 0.0-0.2 MANDIFF (test code = MDIFF) NO NO RBC MORPH (test code = RBCMOR) NORMAL BASIC METABOLIC [id number] 05:17:00 Test Item Value Reference Range Interpretation Comments GLUCOSE (test code = 06D) 78 mg/dL 75-100 SODIUM (test code = 01A) 141 mmol/L 136-145 POTASSIUM (test code = 01B) 3.6 mmol/L 3.6-5.1 CHLORIDE (test code = 04A) 105 mmol/L 98-107 CO2 (test code = 02A) 30 mmol/L 22-32 ANION GAP (test code = ANG) 9.6 mmol/L BUN (test code = 05D) 11 mg/dL 7-18 CREATININE (test code = 03E) 1.0 mg/dL 0.7-1.3 BUN/CREA (test code = BCR) 11 12-20 L CALCIUM (test code = 09D) 8.1 mg/dL 8.3-9.5 L CBC (INCLUDES AUTOMATED DIFFERENTIAL)2019-04-25 05:07:00 Test Item Value Reference Range Interpretation Comments WBC (test code = WBC) 8.9 10\S\3/uL 4.5-11.0 RBC (test code = RBC) 2.43 10\S\6/uL 4.20-5.60 L HGB (test code = HBG) 8.3 g/dL 14.0-18.0 L HCT (test code = HCT) 25.4 % 35.0-46.0 L MCV (test code = MCV) 104.5 fL 80.0-94.0 H MCH (test code = MCH) 34.2 pg 27.0-31.0 H MCHC (test code = MCHC) 32.7 g/dL 32.0-36.0 RDW (test code = RDW) 14.6 % 11.5-14.5 H PLT (test code = PLT) 183 10\S\3/uL 130-400 MPV (test code = MPV) 11.8 fL 9.4-12.4 NEUTROP # (test code = NE#) 6.3 10\S\3/uL 2.0-8.0 LYMPH # (test code = LY#) 1.1 10\S\3/uL 1.2-4.0 L MONOCYTE # (test code = MO#) 1.1 10\S\3/uL 0.0-1.1 EOSINOPH # (test code = EO#) 0.3 10\S\3/uL 0.0-0.7 BASOPHIL # (test code = BA#) 0.0 10\S\3/uL 0.0-0.3 IG # (test code = IG#) 0.12 10\S\3/uL 0.00-0.06 H NRBC # (test code = NRBC#) 0.00 10\S\3/uL 0.00-0.01 NEUTROPH % (test code = NE%) 70.6 % 35.0-73.0 LYMPH % (test code = LY%) 12.3 % 20.0-55.0 L MONO % (test code = MO%) 12.8 % 2.5-10.0 H EOSINOPH % (test code = EO%) 2.8 % 0.0-5.0 BASOPHIL % (test code = BA%) 0.1 % 0.0-2.0 IG % (test code = IG%) 1.4 % 0.0-0.8 H NRBC% (test code = NRBC%) 0.0 % 0.0-0.2 MANDIFF (test code = MDIFF) NO NO RBC MORPH (test code = RBCMOR) NORMAL BASIC METABOLIC [id number] 05:04:00 Test Item Value Reference Range Interpretation Comments GLUCOSE (test code = 06D) 90 mg/dL 75-100 SODIUM (test code = 01A) 142 mmol/L 136-145 POTASSIUM (test code = 01B) 3.6 mmol/L 3.6-5.1 CHLORIDE (test code = 04A) 107 mmol/L 98-107 CO2 (test code = 02A) 28 mmol/L 22-32 ANION GAP (test code = ANG) 10.6 mmol/L BUN (test code = 05D) 12 mg/dL 7-18 CREATININE (test code = 03E) 1.0 mg/dL 0.7-1.3 BUN/CREA (test code = BCR) 12 12-20 CALCIUM (test code = 09D) 8.2 mg/dL 8.3-9.5 L CBC (INCLUDES AUTOMATED DIFFERENTIAL)2019-04-24 04:59:00 Test Item Value Reference Range Interpretation Comments WBC (test code = WBC) 10.2 10\S\3/uL 4.5-11.0 RBC (test code = RBC) 2.49 10\S\6/uL 4.20-5.60 L HGB (test code = HBG) 8.5 g/dL 14.0-18.0 L HCT (test code = HCT) 26.0 % 35.0-46.0 L MCV (test code = MCV) 104.4 fL 80.0-94.0 H MCH (test code = MCH) 34.1 pg 27.0-31.0 H MCHC (test code = MCHC) 32.7 g/dL 32.0-36.0 RDW (test code = RDW) 14.4 % 11.5-14.5 PLT (test code = PLT) 195 10\S\3/uL 130-400 MPV (test code = MPV) 11.9 fL 9.4-12.4 NEUTROP # (test code = NE#) 7.4 10\S\3/uL 2.0-8.0 LYMPH # (test code = LY#) 1.1 10\S\3/uL 1.2-4.0 L MONOCYTE # (test code = MO#) 1.2 10\S\3/uL 0.0-1.1 H EOSINOPH # (test code = EO#) 0.3 10\S\3/uL 0.0-0.7 BASOPHIL # (test code = BA#) 0.0 10\S\3/uL 0.0-0.3 IG # (test code = IG#) 0.24 10\S\3/uL 0.00-0.06 H NRBC # (test code = NRBC#) 0.00 10\S\3/uL 0.00-0.01 NEUTROPH % (test code = NE%) 72.6 % 35.0-73.0 LYMPH % (test code = LY%) 10.5 % 20.0-55.0 L MONO % (test code = MO%) 11.8 % 2.5-10.0 H EOSINOPH % (test code = EO%) 2.6 % 0.0-5.0 BASOPHIL % (test code = BA%) 0.1 % 0.0-2.0 IG % (test code = IG%) 2.4 % 0.0-0.8 H NRBC% (test code = NRBC%) 0.0 % 0.0-0.2 MANDIFF (test code = MDIFF) NO NO RBC MORPH (test code = RBCMOR) NORMAL CBC (INCLUDES AUTOMATED DIFFERENTIAL)2019-04-23 05:27:00 Test Item Value Reference Range Interpretation Comments WBC (test code = WBC) 10.5 10\S\3/uL 4.5-11.0 RBC (test code = RBC) 2.54 10\S\6/uL 4.20-5.60 L HGB (test code = HBG) 8.9 g/dL 14.0-18.0 L HCT (test code = HCT) 26.8 % 35.0-46.0 L MCV (test code = MCV) 105.5 fL 80.0-94.0 H MCH (test code = MCH) 35.0 pg 27.0-31.0 H MCHC (test code = MCHC) 33.2 g/dL 32.0-36.0 RDW (test code = RDW) 14.6 % 11.5-14.5 H PLT (test code = PLT) 192 10\S\3/uL 130-400 MPV (test code = MPV) 12.0 fL 9.4-12.4 NEUTROP # (test code = NE#) 7.8 10\S\3/uL 2.0-8.0 LYMPH # (test code = LY#) 1.1 10\S\3/uL 1.2-4.0 L MONOCYTE # (test code = MO#) 1.1 10\S\3/uL 0.0-1.1 EOSINOPH # (test code = EO#) 0.2 10\S\3/uL 0.0-0.7 BASOPHIL # (test code = BA#) 0.0 10\S\3/uL 0.0-0.3 IG # (test code = IG#) 0.32 10\S\3/uL 0.00-0.06 H NRBC # (test code = NRBC#) 0.00 10\S\3/uL 0.00-0.01 NEUTROPH % (test code = NE%) 74.6 % 35.0-73.0 H LYMPH % (test code = LY%) 10.3 % 20.0-55.0 L MONO % (test code = MO%) 10.0 % 2.5-10.0 EOSINOPH % (test code = EO%) 1.9 % 0.0-5.0 BASOPHIL % (test code = BA%) 0.1 % 0.0-2.0 IG % (test code = IG%) 3.1 % 0.0-0.8 H NRBC% (test code = NRBC%) 0.0 % 0.0-0.2 MANDIFF (test code = MDIFF) NO NO RBC MORPH (test code = RBCMOR) NORMAL BASIC METABOLIC [id number] 05:14:00 Test Item Value Reference Range Interpretation Comments GLUCOSE (test code = 06D) 81 mg/dL 75-100 SODIUM (test code = 01A) 144 mmol/L 136-145 POTASSIUM (test code = 01B) 3.5 mmol/L 3.6-5.1 L CHLORIDE (test code = 04A) 107 mmol/L 98-107 CO2 (test code = 02A) 30 mmol/L 22-32 ANION GAP (test code = ANG) 10.5 mmol/L BUN (test code = 05D) 13 mg/dL 7-18 CREATININE (test code = 03E) 0.9 mg/dL 0.7-1.3 BUN/CREA (test code = BCR) 15 12-20 CALCIUM (test code = 09D) 8.4 mg/dL 8.3-9.5 XR ESOPH(MODIFIED BARIUM SWALLOW)2019-04-22 14:42:09Modified barium swallow: Fluoroscopy time was 64.2 seconds. 1 fluoroscopic spotimage was obtained.HIS TORY: [id number]: CoughCOMPARISON: None.COMMENT: Fluoroscopy was provided for speech therapy with visualization ofliquid and solid food ingestion. There was evidence of deep laryngealpenetration with thin barium to the level of the cords but without definiteaspiration or elicited cough. Mild residue andpremature spillage noted. Noother evidence of laryngeal penetration or aspiration.Impression:1. Deeplaryngeal penetration with thin barium.GLUCOMETER GLUCOSE- LAB USE [id number] 12:07:00 Test Item Value Reference Range Interpretation Comments GLUCOMETER (test code = 94 mg/dL 70-100 Mete r ID: [id number]) [id number] tor: [id number] [facility] [address] CHEST W/O [id number] 11:22:46CT chest without contrastLocation Code: [id number] HISTORY: Pleural effusionCOMPARISON: NoneTechnique: Helical CT of the chest was performed without contrast. Thin sectionaxial, sagittal and coronal images were obtained. Automatic exposure controlwas utilized. Total DLP: 498 mGycmFINDINGS:There is mild thickening of interlobular septa and her bronchial soft tissues.There is a moderate sized layering right-sided pleural effusion with mildunderlying lower lobe compressive airspace disease. Small effusion and mildleft basilar airspace disease noted, as well. Small amount of fluid tracksalong the oblique fissure on the left. Tell-wy-lfsjqtkt emphysematous changesnoted at the apices. The central airways are patent.There is no mediastinal, hilar, or axillary adenopathy. There is no pericardialeffusion.The heart is not enlarged. The mediastinal vasculature isunremarkable. Left subclavian central venous catheter tip terminates in thesuperior vena cava. There is no mediastinal hematoma or fluid collection.There is mild apparent gallbladder wall thickening. The liver is decreased inattenuation. There is no visualized ascites.Degenerative changes are noted throughout the spine. There are chronicappearing mild compression fractures involving T6, T7, and T8. The skin andsurrounding soft tissues are unremarkable.IMPRESSION: 1. Mild congestion and interstitial edema with right greater than leftbilateral effusions and mild underlying bilateral lower lobe atelectasis and/orpneumonia.2. Ljga-qc-immrttdt emphysema.3. Partial visualization of nonspecific gallbladder wall thickening which maybe secondary to congestion and volume overload, chronic liver disease, orhypoproteinemia. Correlation with HIDA scan may be helpful if there is clinicalconcern for cholecystitis.4. Fatty infiltration of the liver.5. Several mild, chronic-appearing mid thoracic vertebral compressionfractures.BASIC METABOLIC [id number] 05:18:00 Test Item Value Reference Range Interpretation Comments GLUCOSE (test code = 06D) 85 mg/dL 75-100 SODIUM (test code = 01A) 146 mmol/L 136-145 H POTASSIUM (test code = 01B) 3.4 mmol/L 3.6-5.1 L CHLORIDE (test code = 04A) 111 mmol/L 98-107 H CO2 (test code = 02A) 29 mmol/L 22-32 ANION GAP (test code = ANG) 9.4 mmol/L BUN (test code = 05D) 14 mg/dL 7-18 CREATININE (test code = 03E) 0.8 mg/dL 0.7-1.3 BUN/CREA (test code = BCR) 17 12-20 CALCIUM (test code = 09D) 8.0 mg/dL 8.3-9.5 L CBC (INCLUDES AUTOMATED DIFFERENTIAL)2019-04-22 05:16:00 Test Item Value Reference Range Interpretation Comments WBC (test code = WBC) 10.1 10\S\3/uL 4.5-11.0 RBC (test code = RBC) 2.45 10\S\6/uL 4.20-5.60 L HGB (test code = HBG) 8.5 g/dL 14.0-18.0 L HCT (test code = HCT) 26.2 % 35.0-46.0 L MCV (test code = MCV) 106.9 fL 80.0-94.0 H MCH (test code = MCH) 34.7 pg 27.0-31.0 H MCHC (test code = MCHC) 32.4 g/dL 32.0-36.0 RDW (test code = RDW) 14.6 % 11.5-14.5 H PLT (test code = PLT) 171 10\S\3/uL 130-400 MPV (test code = MPV) 11.5 fL 9.4-12.4 NEUTROP # (test code = NE#) 7.4 10\S\3/uL 2.0-8.0 LYMPH # (test code = LY#) 1.0 10\S\3/uL 1.2-4.0 L MONOCYTE # (test code = MO#) 1.1 10\S\3/uL 0.0-1.1 EOSINOPH # (test code = EO#) 0.0 10\S\3/uL 0.0-0.7 BASOPHIL # (test code = BA#) 0.0 10\S\3/uL 0.0-0.3 IG # (test code = IG#) 0.51 10\S\3/uL 0.00-0.06 H NRBC # (test code = NRBC#) 0.00 10\S\3/uL 0.00-0.01 NEUTROPH % (test code = NE%) 73.4 % 35.0-73.0 H LYMPH % (test code = LY%) 10.1 % 20.0-55.0 L MONO % (test code = MO%) 11.0 % 2.5-10.0 H EOSINOPH % (test code = EO%) 0.3 % 0.0-5.0 BASOPHIL % (test code = BA%) 0.2 % 0.0-2.0 IG % (test code = IG%) 5.0 % 0.0-0.8 H NRBC% (test code = NRBC%) 0.0 % 0.0-0.2 MANDIFF (test code = MDIFF) NO NO RBC MORPH (test code = RBCMOR) NORMAL XR CHEST 1 [id number] 12:16:01Portable AP chest, 1 viewLocation Code: [id number] HISTORY: CoughCOMPARISON: 04/18/19COMMENT: Mild central congestion remains. There is slight progression bibasilarairspace disease with likely small effusions. The cardiomediastinal silhouetteis unchanged. There is no acute osseous abnormality. Left subclavian centralvenous catheter remains.IMPRESSION: Interval progression of mild bibasilar atelectasis and/or pneumoniawith small bilateral effusionsBLOOD [id number] 08:06:00 Test Item Value Reference Range Interpretation Comments Culture Observations (test NO GROWTH AFTER 5 code = COB1) DAYS BASIC METABOLIC [id number] 06:40:00 Test Item Value Reference Range Interpretation Comments GLUCOSE (test code = 06D) 126 mg/dL 75-100 H SODIUM (test code = 01A) 141 mmol/L 136-145 POTASSIUM (test code = 01B) 3.7 mmol/L 3.6-5.1 CHLORIDE (test code = 04A) 110 mmol/L 98-107 H CO2 (test code = 02A) 28 mmol/L 22-32 ANION GAP (test code = ANG) 6.7 mmol/L BUN (test code = 05D) 11 mg/dL 7-18 CREATININE (test code = 03E) 0.8 mg/dL 0.7-1.3 BUN/CREA (test code = BCR) 13 12-20 CALCIUM (test code = 09D) 7.9 mg/dL 8.3-9.5 L CBC (INCLUDES AUTOMATED DIFFERENTIAL)2019-04-21 06:30:00 Test Item Value Reference Range Interpretation Comments WBC (test code = WBC) 9.0 10\S\3/uL 4.5-11.0 RBC (test code = RBC) 2.67 10\S\6/uL 4.20-5.60 L HGB (test code = HBG) 9.1 g/dL 14.0-18.0 L HCT (test code = HCT) 28.5 % 35.0-46.0 L MCV (test code = MCV) 106.7 fL 80.0-94.0 H MCH (test code = MCH) 34.1 pg 27.0-31.0 H MCHC (test code = MCHC) 31.9 g/dL 32.0-36.0 L RDW (test code = RDW) 14.8 % 11.5-14.5 H PLT (test code = PLT) 165 10\S\3/uL 130-400 MPV (test code = MPV) 12.5 fL 9.4-12.4 H NEUTROP # (test code = NE#) 6.9 10\S\3/uL 2.0-8.0 LYMPH # (test code = LY#) 0.6 10\S\3/uL 1.2-4.0 L MONOCYTE # (test code = MO#) 1.1 10\S\3/uL 0.0-1.1 EOSINOPH # (test code = EO#) 0.0 10\S\3/uL 0.0-0.7 BASOPHIL # (test code = BA#) 0.0 10\S\3/uL 0.0-0.3 IG # (test code = IG#) 0.44 10\S\3/uL 0.00-0.06 H NRBC # (test code = NRBC#) 0.00 10\S\3/uL 0.00-0.01 NEUTROPH % (test code = NE%) 76.3 % 35.0-73.0 H LYMPH % (test code = LY%) 6.5 % 20.0-55.0 L MONO % (test code = MO%) 12.2 % 2.5-10.0 H EOSINOPH % (test code = EO%) 0.0 % 0.0-5.0 BASOPHIL % (test code = BA%) 0.1 % 0.0-2.0 IG % (test code = IG%) 4.9 % 0.0-0.8 H NRBC% (test code = NRBC%) 0.0 % 0.0-0.2 MANDIFF (test code = MDIFF) NO NO RBC MORPH (test code = RBCMOR) NORMAL VANCOMYCIN [id number] 01:57:00 Test Item Value Reference Range Interpretation Comments MONI MARC (test code = VANCT) 19.1 ug/dL 10.0-20.0 CBC WITH MANUAL [id number] 06:03:00 Test Item Value Reference Range Interpretation Comments WBC (test code = WBC) 9.1 10\S\3/uL 4.5-11.0 RBC (test code = RBC) 2.77 10\S\6/uL 4.20-5.60 L HGB (test code = HBG) 9.7 g/dL 14.0-18.0 L HCT (test code = HCT) 29.5 % 35.0-46.0 L MCV (test code = MCV) 106.5 fL 80.0-94.0 H MCH (test code = MCH) 35.0 pg 27.0-31.0 H MCHC (test code = MCHC) 32.9 g/dL 32.0-36.0 RDW (test code = RDW) 14.6 % 11.5-14.5 H PLT (test code = PLT) 156 10\S\3/uL 130-400 MPV (test code = MPV) 11.6 fL 9.4-12.4 NEUTROP # (test code = 6.5 10\S\3/uL 2.0-8.0 NE#) LYMPH # (test code = 0.5 10\S\3/uL 1.2-4.0 L LY#) MONOCYTE # (test code = 1.3 10\S\3/uL 0.0-1.1 H MO#) EOSINOPH # (test code = 0.0 10\S\3/uL 0.0-0.7 EO#) BASOPHIL # (test code = 0.0 10\S\3/uL 0.0-0.3 BA#) IG # (test code = IG#) 0.74 10\S\3/uL 0.00-0.06 H NRBC # (test code = 0.00 10\S\3/uL 0.00-0.01 NRBC#) NEUTROPH % (test code = 71.6 % 35.0-73.0 NE%) LYMPH % (test code = 5.6 % 20.0-55.0 L LY%) MONO % (test code = MO%) 14.5 % 2.5-10.0 H EOSINOPH % (test code = 0.0 % 0.0-5.0 EO%) BASOPHIL % (test code = 0.1 % 0.0-2.0 BA%) IG % (test code = IG%) 8.2 % 0.0-0.8 H NRBC% (test code = 0.0 % 0.0-0.2 NRBC%) MAN DIFF (test code = MANUAL HMDIFF) DIFFERENTIAL SEG (test code = SEG) 71 % 42-75 BAND (test code = BAND) 6 % 0-8 LYMPH (test code = 6 % 20-51 L LYMPH) MONO (test code = MONO) 10 % 3-11 EOS (test code = EOS) 0 % <=10 BASO (test code = BASO) 0 % 0-2 META (test code = META) 7 % <=1 H RBC MORPH (test code = ABNORMAL NORMAL A RBCMORN) PLT EST (test code = ADEQUATE ADEQUATE PLTEST) PLT MORPH (test code = NORMAL (1.5-3 um) NORMAL PLTMOR) ANISO (test code = 1+ NONE A ANISO) POIK (test code = POIK) 1+ NONE A HYPOCHROM (test code = 1+ NONE A HYPOC) MACRO (test code = 1+ NONE A MACRO) OVALOCYTES (test code = 1+ NONE A OVA) BASIC METABOLIC [id number] 05:28:00 Test Item Value Reference Range Interpretation Comments GLUCOSE (test code = 06D) 94 mg/dL 75-100 SODIUM (test code = 01A) 142 mmol/L 136-145 POTASSIUM (test code = 01B) 3.8 mmol/L 3.6-5.1 CHLORIDE (test code = 04A) 110 mmol/L 98-107 H CO2 (test code = 02A) 29 mmol/L 22-32 ANION GAP (test code = ANG) 6.8 mmol/L BUN (test code = 05D) 9 mg/dL 7-18 CREATININE (test code = 03E) 0.7 mg/dL 0.7-1.3 BUN/CREA (test code = BCR) 12 12-20 CALCIUM (test code = 09D) 7.6 mg/dL 8.3-9.5 L CBC WITH MANUAL [id number] 05:49:00 Test Item Value Reference Range Interpretation Comments WBC (test code = 9.2 10\S\3/uL 4.5-11.0 WBC) RBC (test code = 2.85 10\S\6/uL 4.20-5.60 L RBC) HGB (test code = 10.0 g/dL 14.0-18.0 L HBG) HCT (test code = 30.5 % 35.0-46.0 L HCT) MCV (test code = 107.0 fL 80.0-94.0 H MCV) MCH (test code = 35.1 pg 27.0-31.0 H MCH) MCHC (test code = 32.8 g/dL 32.0-36.0 MCHC) RDW (test code = 14.6 % 11.5-14.5 H RDW) PLT (test code = 145 10\S\3/uL 130-400 PLT) MPV (test code = 11.2 fL 9.4-12.4 MPV) NEUTROP # (test 6.5 10\S\3/uL 2.0-8.0 code = NE#) LYMPH # (test code 0.4 10\S\3/uL 1.2-4.0 L = LY#) MONOCYTE # (test 1.5 10\S\3/uL 0.0-1.1 H code = MO#) EOSINOPH # (test 0.0 10\S\3/uL 0.0-0.7 code = EO#) BASOPHIL # (test 0.0 10\S\3/uL 0.0-0.3 code = BA#) IG # (test code = 0.82 10\S\3/uL 0.00-0.06 H IG#) NRBC # (test code = 0.00 10\S\3/uL 0.00-0.01 NRBC#) NEUTROPH % (test 70.7 % 35.0-73.0 code = NE%) LYMPH % (test code 4.1 % 20.0-55.0 L = LY%) MONO % (test code = 16.1 % 2.5-10.0 H MO%) EOSINOPH % (test 0.0 % 0.0-5.0 code = EO%) BASOPHIL % (test 0.2 % 0.0-2.0 code = BA%) IG % (test code = 8.9 % 0.0-0.8 H IG%) NRBC% (test code = 0.0 % 0.0-0.2 NRBC%) MAN DIFF (test code MANUAL = HMDIFF) DIFFERENTIAL SEG (test code = 76 % 42-75 H SEG) BAND (test code = 8 % 0-8 BAND) LYMPH (test code = 5 % 20-51 L LYMPH) MONO (test code = 9 % 3-11 MONO) EOS (test code = 0 % <=10 EOS) BASO (test code = 0 % 0-2 BASO) RBC MORPH (test ABNORMAL NORMAL A code = RBCMORN) PLT EST (test code ADEQUATE ADEQUATE = PLTEST) PLT MORPH (test NORMAL (1.5-3 um) NORMAL code = PLTMOR) ANISO (test code = 1+ NONE A ANISO) HYPOCHROM (test 1+ NONE A code = HYPOC) MACRO (test code = 1+ NONE A MACRO) OVALOCYTES (test 1+ NONE A code = OVA) ATYP LYMP (test 2 % <=5 Previously code = ATYL) reported as: 2 On 04/19/2019 05:4 9 By JV4 COMPREHENSIVE METABOLIC [id number] 05:31:00 Test Item Value Reference Range Interpretation Comments GLUCOSE (test code = 06D) 152 mg/dL 75-100 H SODIUM (test code = 01A) 145 mmol/L 136-145 POTASSIUM (test code = 01B) 4.1 mmol/L 3.6-5.1 CHLORIDE (test code = 04A) 111 mmol/L 98-107 H CO2 (test code = 02A) 29 mmol/L 22-32 ANION GAP (test code = ANG) 9.1 mmol/L BUN (test code = 05D) 8 mg/dL 7-18 CREATININE (test code = 03E) 0.8 mg/dL 0.7-1.3 BUN/CREA (test code = BCR) 10 12-20 L CALCIUM (test code = 09D) 7.5 mg/dL 8.3-9.5 L BILI TOTAL (test code = 11A) 0.6 mg/dL 0.2-1.0 PROTEIN (test code = 07D) 5.4 g/dL 6.4-8.2 L ALBUMIN (test code = 08D) 2.1 g/dL 3.5-4.8 L GLOBULIN (test code = GLB) 3.3 g/dL 1.5-3.8 ALB/GLOB (test code = AGRR) 0.6 1.0-2.6 L ALK PHOS (test code = 35A) 127 IU/L 42-121 H AST (test code = 30A) 75 IU/L <=42 H ALT (test code = 31A) 61 IU/L <=78 XR CHEST 1 VIEW [id number] 17:56:53Exam: AP chestLocation: H 12History: [id number]: CoughComparison: 04/16/2019Findings:No change has occurred in the aeration of the lungs or the bibasilarinfiltrates. The heart size is unchanged. The mediastinal silhouette isunremarkable. The bony thorax is intact. The left subclavian line remains inplace.Impression:Stable chest/no change.URINE CULTURE 2019-04-18 10:29:00 Test Item Value Reference Range Interpretation Comments Culture Observations (test NO GROWTH (<1,000 code = COB1) CFU/ML) WOUND/SKIN/ABS.&GRAMSTAIN [id number] 10:27:00 Test Item Value Reference Range Interpretation Comments Direct Exam (test code = Few wbc DE1) Direct Exam (test code = Few gram positive DE2) cocci Isolate 1 (test code = METHICILLIN RESISTANT AA ISO1) STAPH AUREUS oxacillin paresh (test code ug/mL R = ox) gentamicin (test code = ug/mL S gm) ciprofloxacin (test code ug/mL R = cip) levofloxacin (test code ug/mL I = lev) erythromycin (test code ug/mL R = e) clindamycin (test code = ug/mL R cc) linezolid (test code = ug/mL S lnz) daptomycin (test code = ug/mL S dap) vancomycin (test code = ug/mL S va) doxycycline (test code = ug/mL S dx) tetracycline (test code ug/mL S = tet) rifampicin (test code = ug/mL S rif) trimethoprim/sulfamethox ug/mL S azole (test code = sxt) Isolate 1 (test code = METHICILLIN RESISTANT AA ISO11) STAPH AUREUS oxacillin paresh (test code ug/mL R = ox) gentamicin (test code = ug/mL S gm) ciprofloxacin (test code ug/mL R = cip) levofloxacin (test code ug/mL I = lev) erythromycin (test code ug/mL R = e) clindamycin (test code = ug/mL R cc) linezolid (test code = ug/mL S lnz) daptomycin (test code = ug/mL S dap) vancomycin (test code = ug/mL S va) doxycycline (test code = ug/mL S dx) tetracycline (test code ug/mL S = tet) rifampicin (test code = ug/mL S rif) trimethoprim/sulfamethox ug/mL S azole (test code = sxt) B12 [id number] 09:48:00 Test Item Value Reference Range Interpretation Comments VIT B12 (test code = A60) 1195.0 pg/mL 180.0-914.0 H CBC WITH MANUAL [id number] 07:03:00 Test Item Value Reference Range Interpretation Comments WBC (test code = WBC) 10.8 10\S\3/uL 4.5-11.0 RBC (test code = RBC) 2.97 10\S\6/uL 4.20-5.60 L HGB (test code = HBG) 10.5 g/dL 14.0-18.0 L HCT (test code = HCT) 31.7 % 35.0-46.0 L MCV (test code = MCV) 106.7 fL 80.0-94.0 H MCH (test code = MCH) 35.4 pg 27.0-31.0 H MCHC (test code = MCHC) 33.1 g/dL 32.0-36.0 RDW (test code = RDW) 14.6 % 11.5-14.5 H PLT (test code = PLT) 140 10\S\3/uL 130-400 MPV (test code = MPV) 11.3 fL 9.4-12.4 NEUTROP # (test code = 8.4 10\S\3/uL 2.0-8.0 H NE#) LYMPH # (test code = 0.5 10\S\3/uL 1.2-4.0 L LY#) MONOCYTE # (test code = 1.4 10\S\3/uL 0.0-1.1 H MO#) EOSINOPH # (test code = 0.0 10\S\3/uL 0.0-0.7 EO#) BASOPHIL # (test code = 0.0 10\S\3/uL 0.0-0.3 BA#) IG # (test code = IG#) 0.46 10\S\3/uL 0.00-0.06 H NRBC # (test code = 0.00 10\S\3/uL 0.00-0.01 NRBC#) NEUTROPH % (test code = 77.6 % 35.0-73.0 H NE%) LYMPH % (test code = 4.5 % 20.0-55.0 L LY%) MONO % (test code = MO%) 13.4 % 2.5-10.0 H EOSINOPH % (test code = 0.0 % 0.0-5.0 EO%) BASOPHIL % (test code = 0.2 % 0.0-2.0 BA%) IG % (test code = IG%) 4.3 % 0.0-0.8 H NRBC% (test code = 0.0 % 0.0-0.2 NRBC%) MAN DIFF (test code = MANUAL HMDIFF) DIFFERENTIAL SEG (test code = SEG) 76 % 42-75 H BAND (test code = BAND) 3 % 0-8 LYMPH (test code = 5 % 20-51 L LYMPH) MONO (test code = MONO) 14 % 3-11 H EOS (test code = EOS) 0 % <=10 BASO (test code = BASO) 0 % 0-2 META (test code = META) 2 % <=1 H RBC MORPH (test code = ABNORMAL NORMAL A RBCMORN) PLT EST (test code = ADEQUATE ADEQUATE PLTEST) PLT MORPH (test code = NORMAL (1.5-3 um) NORMAL PLTMOR) ANISO (test code = 1+ NONE A ANISO) HYPOCHROM (test code = 1+ NONE A HYPOC) TOXIC GRAN (test code = 1+ NONE A TOXG) OVALOCYTES (test code = 1+ NONE A OVA) LIVER [id number] 06:44:00 Test Item Value Reference Range Interpretation Comments BILI TOTAL (test code = 11A) 0.4 mg/dL 0.2-1.0 BILI DIRCT (test code = 12A) 0.1 mg/dL 0.0-0.2 BILI INDIR (test code = BILII) 0.3 mg/dL <=0.8 PROTEIN (test code = 07D) 5.1 g/dL 6.4-8.2 L ALBUMIN (test code = 08D) 2.0 g/dL 3.5-4.8 L GLOBULIN (test code = GLB) 3.1 g/dL 1.5-3.8 ALB/GLOB (test code = AGRR) 0.6 1.0-2.6 L ALK PHOS (test code = 35A) 103 IU/L 42-121 AST (test code = 30A) 84 IU/L <=42 H ALT (test code = 31A) 44 IU/L <=78 BASIC METABOLIC [id number] 06:29:00 Test Item Value Reference Range Interpretation Comments GLUCOSE (test code = 06D) 207 mg/dL 75-100 H SODIUM (test code = 01A) 145 mmol/L 136-145 POTASSIUM (test code = 01B) 4.5 mmol/L 3.6-5.1 CHLORIDE (test code = 04A) 112 mmol/L 98-107 H CO2 (test code = 02A) 27 mmol/L 22-32 ANION GAP (test code = ANG) 10.5 mmol/L BUN (test code = 05D) 9 mg/dL 7-18 CREATININE (test code = 03E) 0.6 mg/dL 0.7-1.3 L BUN/CREA (test code = BCR) 14 12-20 CALCIUM (test code = 09D) 7.5 mg/dL 8.3-9.5 L VANCOMYCIN [id number] 15:00:00 Test Item Value Reference Range Interpretation Comments VANC TROGH (test code = VANCT) 13.6 ug/dL 10.0-20.0 AMMONIA [id number] 12:06:00 Test Item Value Reference Range Interpretation Comments AMMONIA (test code = 54A) 35 umol/L 11-32 H [id number] 06:58:00 Test Item Value Reference Range Interpretation Comments MAGNESIUM (test code = 48A) 2.2 mg/dL 1.8-2.4 CBC WITH MANUAL [id number] 06:20:00 Test Item Value Reference Range Interpretation Comments WBC (test code = 4.4 10\S\3/uL 4.5-11.0 L WBC) RBC (test code = 3.09 10\S\6/uL 4.20-5.60 L RBC) HGB (test code = 10.8 g/dL 14.0-18.0 L HBG) HCT (test code = 32.3 % 35.0-46.0 L HCT) MCV (test code = 104.5 fL 80.0-94.0 H MCV) MCH (test code = 35.0 pg 27.0-31.0 H MCH) MCHC (test code = 33.4 g/dL 32.0-36.0 MCHC) RDW (test code = 14.5 % 11.5-14.5 RDW) PLT (test code = 100 10\S\3/uL 130-400 L PLT) MPV (test code = 11.4 fL 9.4-12.4 MPV) NEUTROP # (test 3.5 10\S\3/uL 2.0-8.0 code = NE#) LYMPH # (test code 0.3 10\S\3/uL 1.2-4.0 L = LY#) MONOCYTE # (test 0.5 10\S\3/uL 0.0-1.1 code = MO#) EOSINOPH # (test 0.0 10\S\3/uL 0.0-0.7 code = EO#) BASOPHIL # (test 0.0 10\S\3/uL 0.0-0.3 code = BA#) IG # (test code = 0.09 10\S\3/uL 0.00-0.06 H IG#) NRBC # (test code = 0.00 10\S\3/uL 0.00-0.01 NRBC#) NEUTROPH % (test 78.9 % 35.0-73.0 H code = NE%) LYMPH % (test code 7.8 % 20.0-55.0 L = LY%) MONO % (test code = 11.0 % 2.5-10.0 H MO%) EOSINOPH % (test 0.0 % 0.0-5.0 code = EO%) BASOPHIL % (test 0.2 % 0.0-2.0 code = BA%) IG % (test code = 2.1 % 0.0-0.8 H IG%) NRBC% (test code = 0.0 % 0.0-0.2 NRBC%) MAN DIFF (test code MANUAL = HMDIFF) DIFFERENTIAL SEG (test code = 85 % 42-75 H SEG) BAND (test code = 1 % 0-8 BAND) LYMPH (test code = 7 % 20-51 L LYMPH) MONO (test code = 7 % 3-11 MONO) EOS (test code = 0 % <=10 EOS) BASO (test code = 0 % 0-2 BASO) RBC MORPH (test ABNORMAL NORMAL A code = RBCMORN) PLT EST (test code ADEQUATE ADEQUATE = PLTEST) PLT MORPH (test NORMAL (1.5-3 um) NORMAL code = PLTMOR) ANISO (test code = 1+ NONE A ANISO) HYPOCHROM (test 1+ NONE A code = HYPOC) OVALOCYTES (test 1+ NONE A code = OVA) POIK (test code = 1+ NONE A Previously POIK) reported as: 1+ On 04/17/2019 06:2 0 By 33 BASIC METABOLIC [id number] 06:00:00 Test Item Value Reference Range Interpretation Comments GLUCOSE (test code = 06D) 158 mg/dL 75-100 H SODIUM (test code = 01A) 138 mmol/L 136-145 POTASSIUM (test code = 01B) 4.1 mmol/L 3.6-5.1 CHLORIDE (test code = 04A) 107 mmol/L 98-107 CO2 (test code = 02A) 22 mmol/L 22-32 ANION GAP (test code = ANG) 13.1 mmol/L BUN (test code = 05D) 6 mg/dL 7-18 L CREATININE (test code = 03E) 0.6 mg/dL 0.7-1.3 L BUN/CREA (test code = BCR) 10 12-20 L CALCIUM (test code = 09D) 7.2 mg/dL 8.3-9.5 L BASIC METABOLIC [id number] 13:50:00 Test Item Value Reference Range Interpretation Comments GLUCOSE (test code = 06D) 83 mg/dL 75-100 SODIUM (test code = 01A) 137 mmol/L 136-145 POTASSIUM (test code = 01B) 3.9 mmol/L 3.6-5.1 CHLORIDE (test code = 04A) 103 mmol/L 98-107 CO2 (test code = 02A) 21 mmol/L 22-32 L ANION GAP (test code = ANG) 16.9 mmol/L BUN (test code = 05D) 5 mg/dL 7-18 L CREATININE (test code = 03E) 0.6 mg/dL 0.7-1.3 L BUN/CREA (test code = BCR) 9 12-20 L CALCIUM (test code = 09D) 7.6 mg/dL 8.3-9.[address] [id number] 13:11:05EXAMINATION: NON-TUNNELED CENTRAL VENOUS CATHETER PLACEMENT.LOCATION: D4.HISTORY: Need for central venous accessSEDATION: The patient did not require conscious sedation for the procedure.ANTIBIOTICS: No ne. Not indicated.TECHNIQUE: The risks, benefits, and alternatives were discussed and informedconsent was obtained. Prior to beginning the procedure, [place] Protocol wasused to confirm the patient'sidentity and planned procedure. Maximum sterilebarriers including cap, mask, hand hygiene, sterile gl oves, sterile gown, largesterile drape and cutaneous antisepsis were used.The skin over the left subclavian vein was sterilely prepped, draped, andinfiltrated with lidocaine.Prior to the procedure, thetarget vessel was evaluated by ultrasound. Animage of the patent vessel was recorded and saved to PACS. After sterile prep,this vessel was accessed with a micropuncture needle using real- time ultrasoundguidance. A guidewire and catheter were then passed centrally.After dilating the tract, a triple lumen central venous catheter was insertedover the guidewire. The catheter was flushed and secured in place. A steriledressing was applied. ESTIMATED BLOOD LOSS: Less than 30 milliliters.COMPLICATIONS: None.DISCHARGED TO: Done at bedside.FINDINGS: Ultrasound demonstrates a patent left subclavian vein.Postplacement radiograph demonstrates the catheter with its tip centrallylocated. No complications are seen.IMPRESSION: Successful non-tunneled triple lumen central venous catheterplacement via the left subclavian vein.PLAN: The catheter is ready for immediate use. When treatment is completed,this cathetercan be removed at the bedside according to standard hospitalprotocol.U/S [id number] 13:11:05 EXAMINATION: NON-TUNNELED CENTRAL VENOUS CATHETER PLACEMENT.LOCATION: D4.HISTORY: Need for central venous accessSEDATION: The patient did not require conscious sedation for the procedure.ANTIBIOTICS: None. Not indicated.TECHNIQUE: The risks, benefits, and alternatives were discussed and informedconsent was obtained. Prior to beginning the procedure, [place] Protocol wasused to confirm the patient'sidentity and planned procedure. Maximum sterilebarriers including cap, mask, hand hygiene, sterile gloves, sterile gown, largesterile drape and cutaneous antisepsis were used.The skin over the left subclavian vein was sterilely prepped, draped, andinfiltrated with lidocaine.Prior to the procedure, thetarget vessel was evaluated by ultrasound. Animage of the patent vessel was recorded and saved to PACS. After sterile prep,this vessel was accessed with a micropuncture needle using real-time ultrasoundguidance. A guidewire and catheter were then passed centrally.After dilating the tract, a triple lumen central venous catheter was insertedover the guidewire. The catheter was flushed and secured in place. A steriledressing was applied. ESTIMATED BLOOD LOSS: Less than 30 milliliters.COMPLICATIONS: None.DISCHARGED TO: Done at bedside.FINDINGS: Ultrasound demonstrates a patent left subclavian vein.Postplacement radiograph demonstrates the catheter with its tip centrallylocated. No complications are seen.IMPRESSION: Successful non-tunneled triple lumen central venous catheterplacement via the left subclavian vein.PLAN: The catheter is ready for immediate use. When treatment is completed,this cathetercan be removed at the bedside according to standard hospitalprotocol.XR CHEST 1 VIEW [id number] 12:43:33Portable AP chest, 1 viewLocation Code: [id number] HISTORY: Central line placement, CoughCOMPARISON:Prior earlier on same dayCOMMENT: Left subclavian central venous catheter tip overlies the superior vena cava.There is no pneumothorax.Mild central congestive changes with patchy bibasilar airspace disease remains.The cardiomediastinal silhouette is stable. The bones are intact.IMPRESSION: 1. Left subclavian central venous catheter in satisfactory position.2. Stable mild congestion with mild bibasilar airspace disease.URINALYSIS WITH [id number] 09:27:00 Test Item Value Reference Range Interpretation Comments COLOR (test code = COLU) YELLOW YELLOW CLARITY (test code = CLA) CLEAR CLEAR GLUCOSE UR (test code = UA GLUCOSE) NEGATIVE NEGATIVE BILI UR (test code = BILE) NEGATIVE NEGATIVE KETONES UR (test code = SEBAS) 2+ NEGATIVE A SP GRAVITY (test code = SPGR) 1.013 1.005-1.030 PH UR (test code = PH) 6.0 4.5-8.0 PROTEIN UR (test code = PU) 1+ NEGATIVE A UROBIL UR (test code = UROQ) 1.0 EU/dL 0.2-1.0 NITRITE UR (test code = NITRITE) NEGATIVE NEGATIVE BLOOD UR (test code = UA BLOOD) NEGATIVE NEGATIVE LEUK ES UR (test code = LEUK) 1+ NEGATIVE A WBC UR (test code = UWBC) 20 /HPF 0-3 H RBC UR (test code = URBC) 3 /HPF 0-2 H EPITH UR (test code = UEPC) NONE /LPF NONE BACTERIA UR (test code = UBACT) NONE /HPF NONE CAST UR (test code = CAST) /LPF NONE CRYSTAL UR (test code = CRYU) / LPF NONE MUCUS UR (test code = MUC) / HPF NONE AMORPH UR (test code = ARTEM) / HPF NONE TRICH UR (test code = UTRICH) /HPF NONE YEAST UR (test code = UY) /HPF NONE SPERM UR (test code = USPERM) /HPF NONE IRON/TIBC/IRON [id number] 09:02:00 Test Item Value Reference Range Interpretation Comments IRON (test code = 46B) 21 ug/dL 65-175 L TIBC (test code = 79B) 151 ug/dL 250-400 L FE% SAT (test code = ISAT) 13.9 % 20.0-50.0 L PHOSPHORUS (P04)2019-04-16 09:02:00 Test Item Value Reference Range Interpretation Comments PHOSPHORUS (test code = 43D) 4.1 mg/dL 2.7-4.6 CARDIAC [id number] 02:53:00 Test Item Value Reference Range Interpretation Comments TROPONIN I (test code = A84) <0.015 ng/mL 0.000-0.045 ALCOHOL BLOOD (ETOH)2019-04-16 02:51:00 Test Item Value Reference Range Interpretation Comments ETOH (test code = HALC) ETHANOL The result is to be used only for medical purposes ALCOHOL (test code = <10 mg/dL <=10 56A) LIVER [id number] 02:45:00 Test Item Value Reference Range Interpretation Comments BILI TOTAL (test code = 11A) 0.8 mg/dL 0.2-1.0 BILI DIRCT (test code = 12A) 0.4 mg/dL 0.0-0.2 H BILI INDIR (test code = BILII) 0.4 mg/dL <=0.8 PROTEIN (test code = 07D) 5.7 g/dL 6.4-8.2 L ALBUMIN (test code = 08D) 2.2 g/dL 3.5-4.8 L GLOBULIN (test code = GLB) 3.5 g/dL 1.5-3.8 ALB/GLOB (test code = AGRR) 0.6 1.0-2.6 L ALK PHOS (test code = 35A) 101 IU/L 42-121 AST (test code = 30A) 116 IU/L <=42 H ALT (test code = 31A) 46 IU/L <=78 COMPREHENSIVE METABOLIC [id number] 02:40:00 Test Item Value Reference Range Interpretation Comments GLUCOSE (test code = 06D) 74 mg/dL 75-100 L SODIUM (test code = 01A) 136 mmol/L 136-145 POTASSIUM (test code = 01B) 3.9 mmol/L 3.6-5.1 CHLORIDE (test code = 04A) 101 mmol/L 98-107 CO2 (test code = 02A) 25 mmol/L 22-32 ANION GAP (test code = ANG) 13.9 mmol/L BUN (test code = 05D) 6 mg/dL 7-18 L CREATININE (test code = 03E) 0.7 mg/dL 0.7-1.3 BUN/CREA (test code = BCR) 9 12-20 L CALCIUM (test code = 09D) 7.9 mg/dL 8.3-9.5 L BILI TOTAL (test code = 11A) 0.8 mg/dL 0.2-1.0 PROTEIN (test code = 07D) 5.7 g/dL 6.4-8.2 L ALBUMIN (test code = 08D) 2.2 g/dL 3.5-4.8 L GLOBULIN (test code = GLB) 3.5 g/dL 1.5-3.8 ALB/GLOB (test code = AGRR) 0.6 1.0-2.6 L ALK PHOS (test code = 35A) 101 IU/L 42-121 AST (test code = 30A) 116 IU/L <=42 H ALT (test code = 31A) 46 IU/L <=78 XR CHEST 1 VIEW [id number] 02:38:17Xray Chest 1 viewsLocation Code: [id number]: None availableCLINICAL HISTORY: Cough.Findings: The c ardiomediastinal silhouette is within normal limits.Findings somewhat limited by technique and low lung volumes; there isnonspecific patchy airspace opacity seen within the bilateral lower lung zonespossibly reflecting bronchovascular crowding versus early infiltrateIMPRESSION: Findings somewhat limited by technique and low lung volumes; there isnonspecific patchy airspace opacity seen within the bilateral lower lung zonespossibly reflecting bronchovascular crowding versus early infiltratePRO TIME AND 02:38:00 Test Item Value Reference Range Interpretation Comments PT (test code = 11.4 s 9.8-13.6 TT) INR (test code = 1.0 INR) INRH (test code = SUGGESTED THERAPEUTIC INRH) RANGE FOR INR: 2.5 - 3.5 For Patients with Prosthetic Valves or Patients with recurrent Thromboembolic Events 2.0 - 3.0 For Most Other Applications PTT (test code = 34.7 s 20.2-38.0 PTT) PTTH (test code = To monitor the PTTH) effectiveness of heparin, we offer the Anti-Xa (Heparin Assay). It can be used for either unfractionated or LMW Heparin. Order Code is ANTI-XA PHOSPHORUS (P04)2019-04-16 02:35:00 Test Item Value Reference Range Interpretation Comments PHOSPHORUS (test code = 43D) 3.9 mg/dL 2.7-4.6 DRUGS OF [id number] 02:33:00 Test Item Value Reference Range Interpretation Comments DRUG SCRN (test code = URINE DRUG HDOA) SCREEN This is an unconfirmed screening result and should not be used for non-medical purposes CANNABINOD (test code Negative NEGATIVE = 88C) AMPHETAMINE (test code Negative NEGATIVE = 84A) BENZODIAZP (test code Negative NEGATIVE = 86A) BARBITURAT (test code Negative NEGATIVE = 85A) OPIATES (test code = Negative NEGATIVE 92B) COCAINE (test code = Negative NEGATIVE 87A) PHENCYCLID (test code Negative NEGATIVE = 66A) METHADONE (test code = Negative NEGATIVE 64A) DOAH (test code = DOAH.) URINE DRUG SCREEN Cut-off values are as follows: Cannabinoids 50 ng/mL Cocaine 300 ng/mL Amphetamines 1000 ng/mL Phencyclidine 25 ng/mL Benzodiazepines 200 ng.mL Methadone 300 ng/mL Barbiturates 200 ng/mL Opiates 2000 ng/mL [id number] 02:33:00 Test Item Value Reference Range Interpretation Comments MAGNESIUM (test code = 48A) 1.6 mg/dL 1.8-2.4 L CBC (INCLUDES AUTOMATED DIFFERENTIAL)2019-04-16 02:24:00 Test Item Value Reference Range Interpretation Comments WBC (test code = WBC) 6.8 10\S\3/uL 4.5-11.0 RBC (test code = RBC) 3.13 10\S\6/uL 4.20-5.60 L HGB (test code = HBG) 10.9 g/dL 14.0-18.0 L HCT (test code = HCT) 32.6 % 35.0-46.0 L MCV (test code = MCV) 104.2 fL 80.0-94.0 H MCH (test code = MCH) 34.8 pg 27.0-31.0 H MCHC (test code = MCHC) 33.4 g/dL 32.0-36.0 RDW (test code = RDW) 14.2 % 11.5-14.5 PLT (test code = PLT) 78 10\S\3/uL 130-400 L MPV (test code = MPV) 11.7 fL 9.4-12.4 NEUTROP # (test code = NE#) 4.5 10\S\3/uL 2.0-8.0 LYMPH # (test code = LY#) 0.7 10\S\3/uL 1.2-4.0 L MONOCYTE # (test code = MO#) 1.6 10\S\3/uL 0.0-1.1 H EOSINOPH # (test code = EO#) 0.0 10\S\3/uL 0.0-0.7 BASOPHIL # (test code = BA#) 0.0 10\S\3/uL 0.0-0.3 IG # (test code = IG#) 0.07 10\S\3/uL 0.00-0.06 H NRBC # (test code = NRBC#) 0.00 10\S\3/uL 0.00-0.01 NEUTROPH % (test code = NE%) 65.7 % 35.0-73.0 LYMPH % (test code = LY%) 10.0 % 20.0-55.0 L MONO % (test code = MO%) 23.1 % 2.5-10.0 H EOSINOPH % (test code = EO%) 0.1 % 0.0-5.0 BASOPHIL % (test code = BA%) 0.1 % 0.0-2.0 IG % (test code = IG%) 1.0 % 0.0-0.8 H NRBC% (test code = NRBC%) 0.0 % 0.0-0.2 MANDIFF (test code = MDIFF) NO NO RBC MORPH (test code = RBCMOR) NORMAL MAGNESIUM 2019-04-15 23:03:00 Test Item Value Reference Range Interpretation Comments MAGNESIUM (test code = 48A) 1.4 mg/dL 1.8-2.4 LL LACTIC ACID [id number] 22:53:00 Test Item Value Reference Range Interpretation Comments LACTIC ACD (test code = LA) 0.9 mmol/L 0.4-2.0 COMPREHENSIVE METABOLIC HENDRICKS 2019-04-15 22:52:00 Test Item Value Reference Range Interpretation Comments GLUCOSE (test code = 06D) 67 mg/dL 75-100 L SODIUM (test code = 01A) 135 mmol/L 136-145 L POTASSIUM (test code = 01B) 4.2 mmol/L 3.6-5.1 CHLORIDE (test code = 04A) 102 mmol/L 98-107 CO2 (test code = 02A) 22 mmol/L 22-32 ANION GAP (test code = ANG) 15.2 mmol/L BUN (test code = 05D) 7 mg/dL 7-18 CREATININE (test code = 03E) 0.6 mg/dL 0.7-1.3 L BUN/CREA (test code = BCR) 11 12-20 L CALCIUM (test code = 09D) 7.6 mg/dL 8.3-9.5 L BILI TOTAL (test code = 11A) 0.8 mg/dL 0.2-1.0 PROTEIN (test code = 07D) 5.5 g/dL 6.4-8.2 L ALBUMIN (test code = 08D) 2.2 g/dL 3.5-4.8 L GLOBULIN (test code = GLB) 3.3 g/dL 1.5-3.8 ALB/GLOB (test code = AGRR) 0.6 1.0-2.6 L ALK PHOS (test code = 35A) 99 IU/L 42-121 AST (test code = 30A) 123 IU/L <=42 H ALT (test code = 31A) 47 IU/L <=78 CBC (INCLUDES AUTOMATED DIFFERENTIAL)*[id number] 22:25:00 Test Item Value Reference Range Interpretation Comments WBC (test code = WBC) 7.7 10\S\3/uL 4.5-11.0 RBC (test code = RBC) 2.92 10\S\6/uL 4.20-5.60 L HGB (test code = HBG) 10.4 g/dL 14.0-18.0 L HCT (test code = HCT) 30.5 % 35.0-46.0 L MCV (test code = MCV) 104.5 fL 80.0-94.0 H MCH (test code = MCH) 35.6 pg 27.0-31.0 H MCHC (test code = MCHC) 34.1 g/dL 32.0-36.0 RDW (test code = RDW) 13.8 % 11.5-14.5 PLT (test code = PLT) 78 10\S\3/uL 130-400 L MPV (test code = MPV) 11.5 fL 9.4-12.4 NEUTROP # (test code = NE#) 5.4 10\S\3/uL 2.0-8.0 LYMPH # (test code = LY#) 0.6 10\S\3/uL 1.2-4.0 L MONOCYTE # (test code = MO#) 1.5 10\S\3/uL 0.0-1.1 H EOSINOPH # (test code = EO#) 0.0 10\S\3/uL 0.0-0.7 BASOPHIL # (test code = BA#) 0.0 10\S\3/uL 0.0-0.3 IG # (test code = IG#) 0.07 10\S\3/uL 0.00-0.06 H NRBC # (test code = NRBC#) 0.00 10\S\3/uL 0.00-0.01 NEUTROPH % (test code = NE%) 70.9 % 35.0-73.0 LYMPH % (test code = LY%) 8.1 % 20.0-55.0 L MONO % (test code = MO%) 19.9 % 2.5-10.0 H EOSINOPH % (test code = EO%) 0.1 % 0.0-5.0 BASOPHIL % (test code = BA%) 0.1 % 0.0-2.0 IG % (test code = IG%) 0.9 % 0.0-0.8 H NRBC% (test code = NRBC%) 0.0 % 0.0-0.2 MANDIFF (test code = WMDIFF) NO NO RBC MORPH (test code = NORMAL WRBCMOR) CBC W Auto Differential panel - [id number] 06:30:00 Test Item Value Reference Range Interpretation Comments white blood count (test code = 3.2 K/uL 4.0-12.3 L white blood count) red blood count (test code = red 4.29 M/uL 3.80-5.80 blood count) hemoglobin (test code = 14.5 g/dL 11.7-17.2 hemoglobin) hematocrit (test code = 44.0 % 35.0-51.0 hematocrit) Erythrocyte mean corpuscular 102.6 fL 83-100 H volume [Entitic volume] (test code = 11347-9) Erythrocyte mean corpuscular 33.8 pg 26.8-33.4 H hemoglobin [Entitic mass] (test code = 75617-2) mean corpuscular HGB conc (test 33.0 g/dL 30-35 code = mean corpuscular HGB conc) red cell distribution width (test 13.1 % 12.0-14.0 code = red cell distribution width) platelet count (test code = 111 K/uL 175-450 L platelet count) mean platelet volume (test code = 10.7 fL 9.4-12.6 mean platelet volume) Neutrophils.segmented/100 58.1 % 44.7-82.4 leukocytes in Blood (test code = 58353-4) Ig% (test code = Ig%) 0.3 % 0.0-0.4 lymphocyte% (test code = 23.6 % 10.0-50.0 lymphocyte%) Monocytes/100 leukocytes in Blood 14.9 % 3.9-13.4 H by Automated count (test code = 5905-5) Eosinophils/100 leukocytes in 2.5 % 0.0-6.4 Blood by Automated count (test code = 713-8) Basophils/100 leukocytes in 0.6 % 0.2-1.2 Unspecified specimen (test code = 03961-8) absolute neutrophil count (test 1.87 K/uL 1.78-5.38 code = absolute neutrophil count) Ig# (test code = Ig#) 0.0 K/uL 0.0-0.03 Lymphocytes [#/volume] in 0.8 K/uL 1.32-3.57 L Unspecified specimen by Automated count (test code = 45123-0) mono # (test code = mono #) 0.48 K/uL 0.30-0.82 eos # (test code = eos #) 0.08 K/uL 0.04-0.54 basophil # (test code = basophil 0.02 K/uL 0.01-0.08 #) NRBC% (test code = NRBC%) 0 /100 WBC 0-0.2 NRBC# (test code = NRBC#) 0 [facility]L [facility] [id number] 06:30:00 NeutrophilsBandLymphocyteMonocyteMetamyelocytePlatelet EstimateToxic VacuolationGiant PlateletsMaCrossRoads Behavioral HealthBasic metabolic 2000 panel - Serum or [id number] 06:30:00 Test Item Value Reference Range Interpretation Comments Glucose [Mass/volume] in Serum or 95 mg/dL 82-115 Plasma (test code = 2345-7) Urea nitrogen [Mass/volume] in 8 mg/dL 8-23 Serum or Plasma (test code = 3094-0) Osmolality of Serum or Plasma 272 280-300 L (test code = 2692-2) creatinine (test code = 0.7 mg/dL 0.70-1.20 creatinine) glomerular filtration rate (test >60.00 code = glomerular filtration rate) Urea nitrogen/Creatinine [Mass 11.4 12-20 L Ratio] in Serum or Plasma (test code = 3097-3) sodium level (test code = sodium 137 mmol/L 135-145 level) potassium level (test code = 4.5 mmol/L 3.5-5.2 potassium level) chloride level (test code = 97 mmol/L 98-108 L chloride level) CO2 (test code = CO2) 27 mmol/L 21-32 anion gap (test code = anion gap) 17.5 mEq/L 12-20 calcium level (test code = calcium 9.2 mg/dL 8.8-10.2 level) [facility]
[2022-05-05 19:20] LABS: Urine Blood 2+ (Negative); Urine Glucose Negative (Negative); Urine Protein 2+ (Negative); Urine pH 5.5 (5.0-7.0)
[2022-05-05 19:27] LABS: Absolute Lymphocytes (CBC) 0.2 K/uL (0.7-4.9); Hematocrit 37.2 % (39.6-49.0); MCV 98.2 fL (80-100); MPV 8.3 fL (7.6-11.3); RBC Red Blood Cell Count 3.79 M/uL (4.33-5.43)
[2022-05-05 19:28] LABS: Platelet Estimate DECR; Platelets, Giant PRESENT; White Blood Cell Scan OK (OK)
[2022-05-05 19:29] LABS: Blood Morphology Comment NOT SEEN (NOT SEEN)
[2022-05-05] MEDS ORDERED: POTASSIUM 25 MEQ EFFERV TAB ONE (19:54)
[2022-05-05] MEDS ORDERED: NA CHLORIDE 0.9% 1,000 ML ONE (19:54)
--- NOTE | 2022-05-05 20:17 | RAD REPORT ---
EXAM DESCRIPTION: US - Scrotum Testicles - 05/05/2022 8:03 pm CLINICAL HISTORY: PAIN COMPARISON: Ct Skull/Thigh dated 03/16/2022; Abdomen Pelvis W Contrast dated 04/30/2020 FINDINGS: Testicular tissue is homogeneous. No intratesticular mass lesions identified. Doppler eval uation shows normal intratesticular blood flow. No enlargement or hyperemia of either epididymis. A 5 mm low-density area in the right epididymis may be a minimally complex cyst. Significance is doubtfu l in the absence of hyperemia. Small hydroceles are present. Fat tissue is seen in the left scrotal region. This could be an inguinal hernia that was not evident on a 2019 CT. IMPRESSION: No torsion or other intratesticular abnormality.
--- NOTE | 2022-05-05 20:58 | RAD REPORT ---
EXAM DESCRIPTION: CT - Stone Protocol - 05/05/2022 8:16 pm CLINICAL HISTORY: difficulty urinating COMPARISON: CT RAD RX FIELD SPINE dated 03/07/2022 TECHNIQUE: Axial 3 mm thick images were obtained without oral or IV contrast. The [id number] span s the entirety of the system including uppermost abdomen and lung bases. All CT scans are performed using dose optimization technique as appropriate and may include automated exposure control or mA/KV adjustment according to patient size. FINDINGS: No hydronephrosis is present and no obstructing ureteral calculi. No suspicious renal mass es. Isodense masses and pyelonephritis are not excluded on a stone protocol CT scan. No significant a drenal finding. Delete selection Urinary bladder is grossly abnormal. A Oshea catheter is in place. There is no fluid-filled urinary b ladder. Abnormal air is present within and external to the remnant of the urinary bladder. Extralumin al air dissects posteriorly along each lateral pelvic sidewall and into each inguinal region. Extralu kenia air continues anteriorly along the anterior abdominal wall to the umbilical level. No air withi n the ureters. Communication to bowel is not identified. Imaged portions of the liver, spleen and pancreas show no suspicious findings on non-contrast imaging . No gallbladder or biliary tree abnormality identified. No dilated bowel loops, bowel wall thickening or pneumatosis. An acute bowel process is not seen. No communication with the system is identifiable. Bilateral fat filled inguinal hernias are present small in size. Air dissects into the left inguinal canal. No significant bony abnormality. IMPRESSION: Emphysematous cystitis with perforation. Isodense masses and pyelonephritis are not excluded on stone protocol technique.
[2022-05-05 21:24] LABS: SARS-CoV-2 Antigen Rapid Res Negative (Negative)
[2022-05-05] MEDS ORDERED: ONDANSETRON 4 MG/2 ML VIAL ONE (22:25)
[2022-05-05] MEDS ORDERED: MORPHINE 4 MG/ML SYR ONE (22:25)
--- NOTE | 2022-05-05 23:08 | ER ---
Nurse's Notes [facility] Name: Chacorta Plata Age: 67 yrs Sex: Male : 1955 Arrival Date: 05/05/2022 Time: 18:05 Bed 12 Private MD: Otis Yap Diagnosis: Emphysematous cystitis with perforation Presentation: 05/05 18:26 Chief complaint: Patient states: Pt reports inability to empty bladder since yesterday kb3 with severe testicle pain that has gotten worse since yesterday. Coronavirus screen: Vaccine status: Patient reports receiving the 2nd dose of the covid vaccine. Client denies travel out of the [place] in the last 14 days. Ebola Screen: Patient negative for fever greater than or equal to 101.5 degrees Fahrenheit, and additional compatible Ebola Virus Disease symptoms Patient denies exposure to infectious person. Patient denies travel to an Ebola-affected area in the 21 days before illness onset. No symptoms or risks identified at this time. Initial Sepsis Screen: Does the patient meet any 2 criteria? No. Patient's initial sepsis screen is negative. Does the patient have a suspected source of infection? No. Patient's initial sepsis screen is negative. Risk Assessment: Do you want to hurt yourself or someone else? Patient reports no desire to harm self or others. Onset of symptoms was May 04, 2022. 18:26 Method Of Arrival: Wheelchair kb3 18:26 Acuity: JESSIE 3 kb3 Triage Assessment: 18:29 General: Appears distressed, uncomfortable, Behavior is calm, cooperative. Pain: kb3 Complains of pain in groin Pain does not radiate. Pain currently is 10 out of 10 on a pain scale. Historical: - Allergies: 18:29 No Known Allergies; kb3 - Home Meds: 18:29 Albuterol Inhl [Active]; Famotidine Oral [Active]; gabapentin Oral [Active]; kb3 montelukast Oral [Active]; tamsulosin Oral [Active]; Tramadol Oral [Active]; Trazodone Oral [Active]; - PMHx: 18:29 COPD; Lung CA; kb3 - Immunization history:: Adult Immunizations up to date, Client reports receiving the 2nd dose of the Covid vaccine, Last tetanus immunization: up to date. - Social history:: Smoking status: Patient denies any tobacco usage or history of. Screenin:16 Abuse screen: Denies threats or abuse. Denies injuries from another. Nutritional hb screening: No deficits noted. Tuberculosis screening: No symptoms or risk factors identified. Fall Risk None identified. Assessment: 19:17 General: Appears in no apparent distress. Behavior is calm, cooperative. Pain: Pain hb currently is 10 out of 10 on a pain scale. Neuro: Level of Consciousness is awake, alert, obeys commands, Oriented to person, place, time, situation. Cardiovascular: Patient's skin is warm and dry. Respiratory: Respiratory effort is even, unlabored, Respiratory pattern is regular, symmetrical. GI: Reports lower abdominal pain, upper abdominal pain, diarrhea, nausea. : Reports inability to void. EENT: No signs and/or symptoms were reported regarding the EENT system. Derm: Skin is pink, warm \T\ dry. Musculoskeletal: No signs and/or symptoms reported regarding the musculoskeletal system. 19:58 Reassessment: Pt cleaned of loose stool. Brief changed. hb 21:34 Reassessment: Patient appears in no apparent distress at this time. Patient and/or hb family updated on plan of care and expected duration. Pain level reassessed. Patient is alert, oriented x 3, equal unlabored respirations, skin warm/dry/pink. 22:34 Reassessment: Patient appears in no apparent distress at this time. No changes from hb previously documented assessment. Patient is alert, oriented x 3, equal unlabored respirations, skin warm/dry/pink. 23:08 Reassessment: Blood cultures x 2 drawn and sent to lab. Pt changed of incontinence and hb repositioned in bed with max assist. Transfer to higher level of care pending. 05/06 01:17 Reassessment: pt sleeping, eyes closed, arouses easily, notified of wait for EMS for bb transport, iverson catheter in place to bedside drain. 01:43 Reassessment: EMS at bedside for transport of [place] [facility] [place]. bb Vital Signs: 05/05 18:26 BP 119 / 107; Pulse 106; Resp 26; Temp 98.4; Pulse Ox 93% ; Weight 67.13 kg; Height 5 kb3 ft. 11 in. (180.34 cm); Pain 10/10; 20:57 BP 167 / 87; Pulse 97; Resp 20; Pulse Ox 99% on R/A; hb 22:34 BP 168 / 98; Pulse 95; Resp 17; Pulse Ox 99% on R/A; Pain 7/10; hb 23:10 BP 156 / 86; Pulse 92; Resp 18; Pulse Ox 100% on R/A; hb 23:51 BP 146 / 90; Pulse 92; Resp 15; Pulse Ox 99% on R/A; hb 05/06 01:16 BP 153 / 82; Pulse 94; Resp 14 S; Pulse Ox 93% on R/A; bb 05/05 18:26 Body Mass Index 20.64 (67.13 kg, 180.34 cm) kb3 ED Course: 05/05 18:05 Patient arrived in ED. am2 18:05 Otis Yap DO is Private Physician. am2 18:29 Triage completed. kb3 18:29 Arm band placed on right wrist. kb3 18:55 [facility]urd [facility] kb 18:55 David Palmer MD is Attending Physician. kb 19:01 Daysi Wolff, RADHA is Primary Nurse. hb 19:16 Patient has correct armband on for positive identification. hb 19:16 Iverson cath inserted, using sterile technique, 16 Fr., by me, balloon inflated, to hb gravity drainage, urine specimen collected. returned clear yellow urine. Patient tolerated well. 19:25 Warm blanket given. Pulse ox on. NIBP on. mm9 19:25 Basic Metabolic Panel Sent. mm9 19:25 CBC with Diff Sent. mm9 19:25 Initial lab(s) drawn, by me, sent to lab. Urine collected: Iverson catheter specimen. mm9 Inserted saline lock: 20 gauge in right antecubital area, using aseptic technique. Blood collected. 20:05 US Scrotum Testicles In Process Unspecified. EDMS 20:18 CT Stone Protocol In Process Unspecified. EDMS 21:00 SARS RAPID Sent. hb 21:18 Contacted [facility]. Spoke to Boubacar. mb4 21:39 Notified by Boubacar that we are awaiting confirmation of urology availability. mb4 21:45 Doc-to-doc consultation. mb4 22:04 Contacted [facility]. Spoke to Gail. mb4 22:23 Doc-to-doc consultation with Hermann. melendrez 05/06 01:44 No provider procedures requiring assistance completed. Patient transferred, IV remains bb in place. Administered Medications: 05/05 20:02 Drug: NS 0.9% 1000 ml Route: IV; Rate: 1000 ml; Site: right antecubital; hb 21:00 Follow up: Response: No adverse reaction; IV Status: Completed infusion; IV Intake: hb 1000ml 20:02 Drug: Potassium Effervescent Tablet 50 mEq Route: PO; hb 21:00 Follow up: Response: No adverse reaction hb 22:28 Drug: morphine 4 mg Route: IVP; Infused Over: 4 mins; Site: right antecubital; hb 23:00 Follow up: Response: No adverse reaction hb 22:28 Drug: Zofran (Ondansetron) 4 mg Route: IVP; Site: right antecubital; hb 23:00 Follow up: Response: No adverse reaction hb Medication: 19:17 VIS not applicable for this client. hb Intake: 21:00 IV: 1000ml; Total: 1000ml. hb Output: 23:10 Stool: 3ml; Total: 3ml. hb Outcome: 23:07 ER care complete, transfer ordered by MD. uribe 05/06 01:44 Transferred by ground EMS to [facility], Transfer form completed. X-rays sent bb w/ patient. Condition: stable Instructed on the need for transfer. 01:44 Patient left the ED. bb Signatures: Dispatcher [employer] EDMS Lupe Hurd, JENIFER STEEN-Manasa Fox RN Daysi Cruz, RADHA RN Renea Pena Mackenzie mb4 Nehal Seymour, RADHA uribe3 Annmarie Adames mm9
--- NOTE | 2022-05-05 23:08 | EDPHYS ---
Physician Documentation [facility] Name: Chacorta Plata Age: 67 yrs Sex: Male : 1955 Arrival Date: 05/05/2022 Time: 18:05 Bed 12 Private MD: Otis Yap ED Physician David Palmer HPI: 05/05 21:21 This 67 yrs old Male presents to ER via Wheelchair with complaints of Urinary kb Retention, Testicular Pain. 21:21 The patient presents with scrotal pain, of both sides, urinary symptoms, retention. kb Modifying factors: The symptoms are alleviated by nothing, the symptoms are aggravated by nothing. Onset: The symptoms/episode began/occurred 2 week(s) ago, and became worse today. Associated signs and symptoms: Pertinent positives: abdominal pain, diarrhea, vomiting. Modifying factors: The patient symptoms are alleviated by nothing, the patient symptoms are aggravated by nothing. Associated signs and symptoms: Pertinent positives: abdominal pain, diarrhea, nausea, vomiting, Pertinent negatives: constipation, dysuria, fever, hematuria. Severity of symptoms: At their worst the symptoms were moderate, in the emergency department the symptoms are unchanged. The patient has not experienced similar symptoms in the past. The patient has not recently seen a physician. Pt reports he has been unable to urinate fully for 2 weeks. Reports dribbling. c/o suprapubic pain that got worse tonight. Reports n/v/d that started today. Historical: - Allergies: 18:29 No Known Allergies; kb3 - Home Meds: 18:29 Albuterol Inhl [Active]; Famotidine Oral [Active]; gabapentin Oral [Active]; kb3 montelukast Oral [Active]; tamsulosin Oral [Active]; Tramadol Oral [Active]; Trazodone Oral [Active]; - PMHx: 18:29 COPD; Lung CA; kb3 - Immunization history:: Adult Immunizations up to date, Client reports receiving the 2nd dose of the Covid vaccine, Last tetanus immunization: up to date. - Social history:: Smoking status: Patient denies any tobacco usage or history of. ROS: 21:20 Constitutional: Negative for fever, chills, and weight loss. kb 21:20 Abdomen/GI: Positive for abdominal pain, nausea, vomiting, and diarrhea. 21:20 : Positive for testicular pain urinary retention. 21:20 All other systems are negative. Exam: 21:20 Constitutional: This is a well developed, well nourished patient who is awake, alert, kb and in no acute distress. Head/Face: Normocephalic, atraumatic. ENT: Moist Mucous membranes Cardiovascular: Regular rate and rhythm with a normal S1 and S2. No gallops, murmurs, or rubs. No pulse deficits. Respiratory: Respirations even and unlabored. No increased work of breathing. Talking in full sentences Skin: Warm, dry with normal turgor. Normal color. MS/ Extremity: Pulses equal, no cyanosis. Neurovascular intact. Full, normal range of motion. Neuro: Awake and alert, GCS 15, oriented to person, place, time, and situation. Moves all extremities. Normal gait. 21:20 Abdomen/GI: Inspection: abdomen appears normal, Bowel sounds: normal, Palpation: soft, in all quadrants, moderate abdominal tenderness, in the suprapubic area. Vital Signs: 18:26 BP 119 / 107; Pulse 106; Resp 26; Temp 98.4; Pulse Ox 93% ; Weight 67.13 kg; Height 5 kb3 ft. 11 in. (180.34 cm); Pain 10/10; 20:57 BP 167 / 87; Pulse 97; Resp 20; Pulse Ox 99% on R/A; hb 22:34 BP 168 / 98; Pulse 95; Resp 17; Pulse Ox 99% on R/A; Pain 7/10; hb 23:10 BP 156 / 86; Pulse 92; Resp 18; Pulse Ox 100% on R/A; hb 23:51 BP 146 / 90; Pulse 92; Resp 15; Pulse Ox 99% on R/A; hb 05/06 01:16 BP 153 / 82; Pulse 94; Resp 14 S; Pulse Ox 93% on R/A; bb 05/05 18:26 Body Mass Index 20.64 (67.13 kg, 180.34 cm) kb3 MDM: 05/05 18:55 Patient medically screened. kb 21:13 Data reviewed: vital signs, nurses notes. Data interpreted: Pulse oximetry: on room air kb is 99 %. Interpretation: normal. Counseling: I had a detailed discussion with the patient and/or guardian regarding: the historical points, exam findings, and any diagnostic results supporting the discharge/admit diagnosis, lab results, radiology results, the need to transfer to another facility, [facility] does not immediately have the required specialist. 21:52 ED course: [facility] on internal disaster and not accepting transfers. [facility] Urologist believes pt would be a better fit for the medical center. . ED course: Transfer initiated to [facility]. 22:27 ED course: Dr Topete, urologist for [facility], accepts pt for consult.. kb 23:07 ED course: Pt accepted for transfer to [facility] by Dr Kirby, hospitalist.. kb 05/05 19:03 Order name: CBC with Diff; Complete Time: 19:34 kb 05/05 19:03 Order name: Basic Metabolic Panel; Complete Time: 19:49 kb 05/05 19:20 Order name: Urine Dipstick-Ancillary; Complete Time: 19:24 EDMS 05/05 19:29 Order name: CBC Smear Scan; Complete Time: 19:34 EDMS 05/05 20:56 Order name: SARS RAPID; Complete Time: 21:26 kb 05/05 22:26 Order name: Urine Culture kb 05/05 18:55 Order name: US Scrotum Testicles; Complete Time: 20:21 kb 05/05 18:55 Order name: Urine Dipstick-Ancillary (obtain specimen); Complete Time: 19:17 kb 05/05 19:03 Order name: CT Stone Protocol; Complete Time: 21:02 kb 05/05 22:26 Order name: Blood Culture Adult (2) kb 05/05 19:03 Order name: IV Start; Complete Time: 19:13 kb 05/05 19:03 Order name: [place]; Complete Time: 19:13 kb Administered Medications: 20:02 Drug: NS 0.9% 1000 ml Route: IV; Rate: 1000 ml; Site: right antecubital; hb 21:00 Follow up: Response: No adverse reaction; IV Status: Completed infusion; IV Intake: hb 1000ml 20:02 Drug: Potassium Effervescent Tablet 50 mEq Route: PO; hb 21:00 Follow up: Response: No adverse reaction hb 22:28 Drug: morphine 4 mg Route: IVP; Infused Over: 4 mins; Site: right antecubital; hb 23:00 Follow up: Response: No adverse reaction hb 22:28 Drug: Zofran (Ondansetron) 4 mg Route: IVP; Site: right antecubital; hb 23:00 Follow up: Response: No adverse reaction hb Disposition Summary: 05/05/22 23:07 Transfer Ordered Transfer Location: [facility] Reason: Higher level of care kb Condition: Stable kb Problem: new kb Symptoms: are unchanged kb Accepting Physician: Dr Kirby(05/06/22 01:44) rose Diagnosis - Emphysematous cystitis with perforation kb Forms: - Medication Reconciliation Form kb - SBAR form kb Addendum: 05/09/2022 04:13 Co-signature as Attending Physician, David Palmer MD I agree with the assessment and c shell plan of care. Signatures: Dispatcher [employer] EDMS Lupe Hurd, MUSIC WRITER-C MUSIC WRITER-Ckb David Palmer MD MD cha Ballard, Brenda, RN RN bb Daysi Wolff, RN RN Nehal Tripp RN RN kb3 Corrections: (The following items were deleted from the chart) 05/05 21:21 21:20 : Positive for urinary retention, kb kb 21:24 21:20 Abdomen/GI: Positive for abdominal pain, diarrhea, kb kb 23:07 22:27 ED course: Dr Wooten, urologist for [facility], accepts pt for consult.. kb kb 05/06 01:44 05/05 23:07 Dr Kofi uribe bb
[2022-05-06 01:49] VITALS: TEMP 98.4
[2022-05-06 01:55] VITALS: BP 153/82; O2SAT 93
== END 2022-05-06 01:44 | disposition short-term general hospital (02) ==
LOC: ER 18:04
DX: N30.80 Other cystitis without hematuria (principal); J44.9 Chronic obstructive pulmonary disease, unspecified; Z20.822 Contact with and (suspected) exposure to COVID-19; Z85.118 Personal history of other malignant neoplasm of bronchus and lung
CPT/HCPCS: 96361; 87040 ×2; 87088; 85025; 87086; 80048; 36415; 87077; 87186; 81003; 76377; 74176; 76870; 51702; 96375; 96374; 99285; 87811; J7030; J2405

== ENCOUNTER 2022-06-02 13:22 | Emergency (ER) | payer OTHER ==
--- OUTSIDE RECORDS SUMMARY | 2022-06-02 13:29 | XMS REPORT | Continuity of Care Document ---
:1955 Author Organization [facility] t Address [address] [place] [address] Care Team Providers Name Role Phone Beulah Ndiaye Primary Care Physician Sarah Arevalo Attending Clinician Lor Corcoran Attending Clinician LOR CORCORAN Attending Clinician Unavailable Patricia Andrews Attending Clinician CYNTHIA VINCENT Attending Clinician Unavailable ESTEPHANIA Attending Clinician Unavailable Fco Attending Clinician Unavailable DR SHARMIN HAWK Attending Clinician Unavailable Marcela Garcia Attending Clinician Reese Granger Attending Clinician Patricia Andrews Admitting Clinician PATRICIA ANDREWS Admitting Clinician Unavailable ESTEPHANIA Admitting Clinician Unavailable Fco Admitting Clinician Unavailable DR SHARMIN HAWK Admitting Clinician Unavailable Marcela Garcia Admitting Clinician Reese Granger Admitting Clinician Payers Payer Name Policy Type Policy Number Effective Date Expiration Date Jackson anne MEDICARE PLAN PPO - [id number] AETALFREDO AETNA (MEDICARE [id number] 2016 REPLACEMENT PPO) 00:00:00 Problems This patient has no known problems. Allergies, Adverse Reactions, Alerts This patient has no known allergies or adverse reactions. Family History Family Member Diagnosis Comments Start Date Stop Date Source Natural father Cancer [facility] Social History Social Habit Start Date Stop Date Quantity Comments Source History of tobacco Smokes tobacco [facility] use daily Hospital Alcohol intake 2019-01-01 2019-01-01 .71 /d Denominational 00:00:00 00:00:00 Hospital History [facility] 2019-01-01 2019-01-01 5 Denominational Alcohol Frequency 00:00:00 00:00:00 Hospita l History [facility] 2019-01-01 2019-01-01 3 Denominational Alcohol Std Drinks 00:00:00 00:00:00 Hospit al History [facility] 2019-01-01 2019-01-01 5 Denominational Alcohol Binge 00:00:00 00:00:00 Hospital Cigarettes smoked 2019-01-01 2019-01-[address] current (pack per 00:00:00 00:00:00 Hospita l day) - Reported Cigarette 2019-01-01 2019-01-01 Denominational pack-years 00:00:00 00:00:00 Hospital Tobacco use and 2019-01-01 2019-01-01 Smokeless tobacco [facility] exposure 00:00:00 00:00:00 non-user Hospital Sex Ass[birth year] At [birth year] Denominational 00:00:00 00:00:00 Hospital Smoking Status Start Date Stop Date Source Smokes tobacco daily 2019-01-01 00:00:00 [facility] Medications Ordered Filled Start Stop Current Ordering Indication Dosage Frequency Signature Comments Components Source Medication Medication Date Date Medication? Clinician (SIG) Name Name acetaminoph Yes TAKE 1 Meth [place] en-codeine 5-[address] (TYLENOL 00:00: MOUTH Hospita WITH 00 EVERY 6 l CODEINE #3) HOURS 300-30 mg NEEDED FOR per tablet PAIN CONTROL acetaminoph Yes TAKE 1 Meth [place] en-codeine 5-[address] (TYLENOL 00:00: MOUTH Hospita WITH 00 EVERY 6 l CODEINE #3) HOURS 300-30 mg NEEDED FOR per tablet PAIN CONTROL acetaminoph Yes TAKE 1 Meth [place] en-codeine 5-[address] (TYLENOL 00:00: MOUTH Hospita WITH 00 EVERY 6 l CODEINE #3) HOURS 300-30 mg NEEDED FOR per tablet PAIN CONTROL acetaminoph Yes TAKE 1 Meth [place] en-codeine 5-[address] (TYLENOL 00:00: MOUTH Hospita WITH 00 EVERY 6 l CODEINE #3) HOURS 300-30 mg NEEDED FOR per tablet PAIN CONTROL SYMBICORT Yes Methodi 160-4.5 5-13 st mcg/actuati 00:00: Hospit a on inhaler 00 l SYMBICORT Yes Methodi 160-4.5 5-13 st mcg/actuati 00:00: Hospit a on inhaler 00 l SYMBICORT Yes Methodi 160-4.5 5-13 st mcg/actuati 00:00: Hospit a on inhaler 00 l SYMBICORT Yes Methodi 160-4.5 5-13 st mcg/actuati [...] BMI (Body Mass 2019-01-23 00:00:00 19.2 kg/m2 [facility] Group BP Systolic 2019-01-23 00:00:00 128 mm[Hg] [facility] Body Weight 2019-01-23 00:00:00 138 [lb_av] [facility] BP Diastolic 2019-01-09 00:00:00 76 mm[Hg] [facility] Height 2019-01-09 00:00:00 71 [in_i] [facility] BMI (Body Mass 2019-01-09 00:00:00 19.2 kg/m2 [facility] BP Systolic 2019-01-09 00:00:00 132 mm[Hg] [facility] Body Weight 2019-01-09 00:00:00 138 [lb_av] [facility] BP Diastolic 2018-11-28 00:00:00 83 mm[Hg] [facility] Height 2018-11-28 00:00:00 71 [in_i] [facility] BMI (Body Mass 2018-11-28 00:00:00 19.1 kg/m2 [facility]) Group BP Systolic 2018-11-28 00:00:00 130 mm[Hg] [facility] Body Weight 2018-11-28 00:00:00 136.7 [lb_av] [facility] Procedures This patient has no known procedures. Plan of Care Planned Activity Planned Date Details Comments Source Future Scheduled Test 2022-06-02 HEPATITIS B VACCINES [facility] 13:26:42 (1 of 3 - 3-dose series) [code = HEPATITIS B VACCINES (1 of 3 - 3-dose series)] Future Scheduled Test 2022-06-02 COVID-19 VACCINE (#1) [facility] 13:26:42 [code = COVID-19 VACCINE (#1)] Future Scheduled Test 2022-06-02 COLONOSCOPY SCREENING [facility] 13:26:42 [code = COLONOSCOPY SCREENING] Future Scheduled Test 2022-06-02 SHINGLES VACCINES (1 [facility] 13:26:42 of 2) [code = SHINGLES VACCINES (1 of 2)] Future Scheduled Test 2022-06-02 INFLUENZA VACCINE [facility] 13:26:42 [code = INFLUENZA VACCINE] Future Scheduled Test 2022-06-02 65+ PNEUMOCOCCAL [facility] 13:26:42 VACCINE (1 - PCV) [code = 65+ PNEUMOCOCCAL VACCINE (1 - PCV)] Future Scheduled Test 2022-05-10 SHINGLES VACCINES (1 [facility] 13:53:05 of 2) [code = SHINGLES VACCINES (1 of 2)] Future Scheduled Test 2022-05-10 INFLUENZA VACCINE [facility] 13:53:05 [code = INFLUENZA VACCINE] Future Scheduled Test 2022-05-10 65+ PNEUMOCOCCAL [facility] 13:53:05 VACCINE (1 - PCV) [code = 65+ PNEUMOCOCCAL VACCINE (1 - PCV)] Future Scheduled Test 2022-05-10 HEPATITIS B VACCINES [facility] 13:53:05 (1 of 3 - 3-dose series) [code = HEPATITIS B VACCINES (1 of 3 - 3-dose series)] Future Scheduled Test 2022-05-10 COVID-19 VACCINE (#1) [facility] 13:53:05 [code = COVID-19 VACCINE (#1)] Future Scheduled Test 2022-05-10 COLONOSCOPY SCREENING [facility] 13:53:05 [code = COLONOSCOPY SCREENING] Future Scheduled Test 2022-05-10 SHINGLES VACCINES (1 [facility] 13:53:05 of 2) [code = SHINGLES VACCINES (1 of 2)] Future Scheduled Test 2022-05-10 INFLUENZA VACCINE [facility] 13:53:05 [code = INFLUENZA VACCINE] Future Scheduled Test 2022-05-10 65+ PNEUMOCOCCAL [facility] 13:53:05 VACCINE (1 - PCV) [code = 65+ PNEUMOCOCCAL VACCINE (1 - PCV)] Future Scheduled Test 2022-05-10 HEPATITIS B VACCINES [facility] 13:53:05 (1 of 3 - 3-dose series) [code = HEPATITIS B VACCINES (1 of 3 - 3-dose series)] Future Scheduled Test 2022-05-10 COVID-19 VACCINE (#1) [facility] 13:53:05 [code = COVID-19 VACCINE (#1)] Future Scheduled Test 2022-05-10 COLONOSCOPY SCREENING [facility] 13:53:05 [code = COLONOSCOPY SCREENING] Future Scheduled Test 2022-04-16 HEPATITIS B VACCINES [facility] 11:43:08 (1 of 3 - 3-dose series) [code = HEPATITIS B VACCINES (1 of 3 - 3-dose series)] Future Scheduled Test 2022-04-16 COVID-19 VACCINE (#1) [facility] 11:43:08 [code = COVID-19 VACCINE (#1)] Future Scheduled Test 2022-04-16 COLONOSCOPY SCREENING [facility] 11:43:08 [code = COLONOSCOPY SCREENING] Future Scheduled Test 2022-04-16 SHINGLES VACCINES (1 [facility] 11:43:08 of 2) [code = SHINGLES VACCINES (1 of 2)] Future Scheduled Test 2022-04-16 INFLUENZA VACCINE [facility] 11:43:08 [code = INFLUENZA VACCINE] Future Scheduled Test 2022-04-16 65+ PNEUMOCOCCAL [facility] 11:43:08 VACCINE (1 - PCV) [code = 65+ PNEUMOCOCCAL VACCINE (1 - PCV)] Instructions [facility] Encounters Start End Encounter Admission Attending Care Care Encounter Source Date/Time Date/Time Type Type Clinicians Facility Department ID 2022-05-25 Outpatient [facility] [id number] Common 15:40:02 [id number] [facility] 2022-04-12 Outpatient [facility] [id number] Common 08:38:01 [facility] 2022-03-28 Outpatient [facility] [id number] Common 09:40:02 [facility] 2022-03-07 Outpatient [facility] [id number] Common 11:01:02 [facility] 2022-01-24 Outpatient [facility] [id number] Common 14:15:01 [facility] 2021-08-10 Outpatient [facility] [id number] Common 12:51:04 [facility] 2022-05-29 2022-05-29 Outpatient MORAIMA Arevalo [facility] [id number] 11:20:00 23:59:59 Sarah L 00 2022-05-06 2022-05-10 Outpatient Nilo [facility] [id number] 02:47:00 15:55:00 Lor Jamison 95 2022-05-06 2022-05-10 Inpatient U NILO [facility] MED [id number] [facility] 02:47:00 15:55:00 LOR 2022-05-06 2022-05-06 Outpatient Kofi [facility] [id number] 02:47:00 02:47:00 Patricia Carlene Master 2022-02-16 2022-02-16 Outpatient REMA VINCENT Yaquelin [id number] [facility] 15:27:04 16:06:54 CYNTHIA dominguez of Medicin e 2022-01-25 2022-01-25 Outpatient CHARITY_KARY VINCENT VAАНДРЕЙ 735 [place] 01:59:00 01:59:00 H 0713 da [facility] h Program 2020-06-02 2020-06-02 Outpatient Fco MMG MMG [id number] [place] 02:27:00 02:27:00 [facility]8 [facility] 2019-04-15 2019-04-26 Inpatient SHARMIN CHAO [facility] TELE 1000 [id number] [facility] 22:19:00 13:45:00 [facility] 2019-01-23 2019-01-23 Abraham BENEDICT [place] - [id number] M [facility] 00:00:00 00:00:00 Young, DO: [facility] [address] [place] [address], [place] [address], [facility] [address] , Ph. [phone] 2019-01-09 2019-01-09 Abraham BENEDICT [place] - [id number] M [facility] 00:00:00 00:00:00 Young, DO: [facility] [address] [place] [address], [place] [address], [facility] [address] , Ph. [phone] 2018-11-28 2018-11-28 Abraham BENEDICT [place] - [id number] M [facility] 00:00:00 00:00:00 Young, DO: [facility] [address] [place] [address], [place] [address], [facility] [id number] , Ph. [phone] 2013-12-31 2014-01-02 Outpatient [place], [id number] 17:01:00 15:00:00 Marcela Alford [id number] 78 1858-06-12 2013-12-31 Outpatient [place], [id number]. [id number] 11:37:00 17:00:00 Reese Rodriguez [id number] 01 Results Test Description Test Time Test Comments Results Result Comments Source URINE CULTURE 2019-05-02 10:30:00 Test Item Value Reference Range Interpretation Comme nts Culture Observations (test code = COB1) NO GROWTH (<1,000 CFU/ML) [id number] 07:01:00 Test Item Value Reference Range Interpretation [...] code = LEUK) NEGATIVE NEGATIVE BASIC METABOLIC [id number] 01:03:00 Test Item Value Reference Range Interpretation [...] code = RBCMOR) NORMAL XR CHEST 2 [id number] 13:08:04PA and lateral chest, 2 viewsLocation code: [id number] HISTORY: Pleural effusionCOMPARISON: 04/21/19, CT dated 04/22/19COMMENTS: Mild central congestion remains. Left mild bibasilar airspace diseaseandsmall effusions appear stable. The cardiomediastinal fluid is stable. Leftsubclavian central venous catheter remains. IMPRESSION: Stable mild congestion and edema with bibasilar atelectasis and/orpneumonia and small bilateral effusions.BASIC METABOLIC [id number] 06:13:00 Test Item Value Reference Range Interpretation [...] (test code = RBCMOR) NORMAL BASIC METABOLIC [id number] 05:17:00 Test Item Value Reference Range Interpretation [...] (test code = RBCMOR) NORMAL BASIC METABOLIC [id number] 05:04:00 Test Item Value Reference Range Interpretation [...] (test code = RBCMOR) NORMAL BASIC METABOLIC [id number] 05:14:00 Test Item Value Reference Range Interpretation [...] seconds. 1 fluoroscopic spotimage was obtained.HIS TORY: [id number]: CoughCOMPARISON: None.COMMENT: Fluoroscopy was provided for speech therapy with visualization ofliquid and solid food ingestion. There was evidence of deep laryngealpenetration with thin barium to the level of the cords but without definiteaspiration or elicited cough. Mild residue andpremature spillage noted. Noother evidence of laryngeal penetration or aspiration.Impression:1. Deeplaryngeal penetration with thin barium.GLUCOMETER GLUCOSE- LAB USE [id number] 12:07:00 Test Item Value Reference Range Interpretation Comments GLUCOMETER (test code = 94 mg/dL 70-100 Mete r ID: GMG) [id number] tor: [id number] [facility] [address] CHEST W/O [id number] 11:22:46CT chest without contrastLocation Code: [id number] HISTORY: Pleural effusionCOMPARISON: NoneTechnique: Helical CT of [...] tracksalong the oblique fissure on the left. Nybb-rv-uysgdtri emphysematous changesnoted at the apices. The central [...] mild underlying bilateral lower lobe atelectasis and/orpneumonia.2. Efpe-lu-ffiffbvn emphysema.3. Partial visualization of nonspecific gallbladder wall thickening which maybe secondary to congestion and volume overload, chronic liver disease, orhypoproteinemia. Correlation with HIDA scan may be helpful if there is clinicalconcern for cholecystitis.4. Fatty infiltration of the liver.5. Several mild, chronic-appearing mid thoracic vertebral compressionfractures.BASIC METABOLIC [id number] 05:18:00 Test Item Value Reference Range Interpretation [...] code = RBCMOR) NORMAL XR CHEST 1 [id number] 12:16:01Portable AP chest, 1 viewLocation Code: [id number] HISTORY: CoughCOMPARISON: 04/18/19COMMENT: Mild central congestion remains. There is slight progression bibasilarairspace disease with likely small effusions. The cardiomediastinal silhouetteis unchanged. There is no acute osseous abnormality. Left subclavian centralvenous catheter remains.IMPRESSION: Interval progression of mild bibasilar atelectasis and/or pneumoniawith small bilateral effusionsBLOOD [id number] 08:06:00 Test Item Value Reference Range Interpretation Comments Culture Observations (test NO GROWTH AFTER 5 code = COB1) DAYS BASIC METABOLIC [id number] 06:40:00 Test Item Value Reference Range Interpretation [...] MORPH (test code = RBCMOR) NORMAL VANCOMYCIN [id number] 01:57:00 Test Item Value Reference Range Interpretation Comments MONI MARC (test code = VANCT) 19.1 ug/dL 10.0-20.0 CBC WITH MANUAL [id number] 06:03:00 Test Item Value Reference Range Interpretation [...] = 1+ NONE A OVA) BASIC METABOLIC [id number] 05:28:00 Test Item Value Reference Range Interpretation [...] 7.6 mg/dL 8.3-9.5 L CBC WITH MANUAL [id number] 05:49:00 Test Item Value Reference Range Interpretation [...] 04/19/2019 05:4 9 By JV4 COMPREHENSIVE METABOLIC [id number] 05:31:00 Test Item Value Reference Range Interpretation [...] 61 IU/L <=78 XR CHEST 1 VIEW [id number] 17:56:53Exam: AP chestLocation: H 12History: [id number]: CoughComparison: 04/16/2019Findings:No change has occurred in the aeration of the lungs or the bibasilarinfiltrates. The heart size is unchanged. The mediastinal silhouette isunremarkable. The bony thorax is intact. The left subclavian line remains inplace.Impression:Stable chest/no change.URINE CULTURE 2019-04-18 10:29:00 Test Item Value Reference Range Interpretation Comments Culture Observations (test NO GROWTH (<1,000 code = COB1) CFU/ML) WOUND/SKIN/ABS.&GRAMSTAIN [id number] 10:27:00 Test Item Value Reference Range Interpretation [...] S azole (test code = sxt) B12 [id number] 09:48:00 Test Item Value Reference Range Interpretation Comments VIT B12 (test code = A60) 1195.0 pg/mL 180.0-914.0 H CBC WITH MANUAL [id number] 07:03:00 Test Item Value Reference Range Interpretation [...] code = 1+ NONE A OVA) LIVER [id number] 06:44:00 Test Item Value Reference Range Interpretation [...] = 31A) 44 IU/L <=78 BASIC METABOLIC [id number] 06:29:00 Test Item Value Reference Range Interpretation [...] = 09D) 7.5 mg/dL 8.3-9.5 L VANCOMYCIN [id number] 15:00:00 Test Item Value Reference Range Interpretation Comments VANC TROGH (test code = VANCT) 13.6 ug/dL 10.0-20.0 AMMONIA [id number] 12:06:00 Test Item Value Reference Range Interpretation Comments AMMONIA (test code = 54A) 35 umol/L 11-32 H [id number] 06:58:00 Test Item Value Reference Range Interpretation Comments MAGNESIUM (test code = 48A) 2.2 mg/dL 1.8-2.4 CBC WITH MANUAL [id number] 06:20:00 Test Item Value Reference Range Interpretation [...] as: 1+ On 04/17/2019 06:2 0 By [facility] BASIC METABOLIC [id number] 06:00:00 Test Item Value Reference Range Interpretation [...] 09D) 7.2 mg/dL 8.3-9.5 L BASIC METABOLIC [id number] 13:50:00 Test Item Value Reference Range Interpretation [...] 7.6 mg/dL 8.3-9.[address] [id number] 13:11:05EXAMINATION: NON-TUNNELED CENTRAL VENOUS CATHETER PLACEMENT.LOCATION: D4.HISTORY: Need for central venous accessSEDATION: The patient did not require conscious sedation for the procedure.ANTIBIOTICS: No ne. Not indicated.TECHNIQUE: The risks, benefits, and alternatives were discussed and informedconsent was obtained. Prior to beginning the procedure, [place] Protocol wasused to confirm the patient'sidentity and [...] at the bedside according to standard hospitalprotocol.U/S [id number] 13:11:05 EXAMINATION: NON-TUNNELED CENTRAL VENOUS CATHETER PLACEMENT.LOCATION: D4.HISTORY: Need for central venous accessSEDATION: The patient did not require conscious sedation for the procedure.ANTIBIOTICS: None. Not indicated.TECHNIQUE: The risks, benefits, and alternatives were discussed and informedconsent was obtained. Prior to beginning the procedure, [place] Protocol wasused to confirm the patient'sidentity and [...] for immediate use. When treatment is completed,this catheter can be removed at the bedside according to standard hospitalprotocol.XR CHEST 1 VIEW [id number] 12:43:33Portable AP chest, 1 viewLocation Code: [id number] HISTORY: Central line placement, CoughCOMPARISON:Prior earlier on same dayCOMMENT: Left subclavian central venous catheter tip overlies the superior vena cava.There is no pneumothorax.Mild central congestive changes with patchy bibasilar airspace disease remains.The cardiomediastinal silhouette is stable. The bones are intact.IMPRESSION: 1. Left subclavian central venous catheter in satisfactory position.2. Stable mild congestion with mild bibasilar airspace disease.URINALYSIS WITH [id number] 09:27:00 Test Item Value Reference Range Interpretation [...] (test code = USPERM) /HPF NONE IRON/TIBC/IRON [id number] 09:02:00 Test Item Value Reference Range Interpretation Comments IRON (test code = 46B) 21 ug/dL 65-175 L TIBC (test code = 79B) 151 ug/dL 250-400 L FE% SAT (test code = ISAT) 13.9 % 20.0-50.0 L PHOSPHORUS (P04)2019-04-16 09:02:00 Test Item Value Reference Range Interpretation Comments PHOSPHORUS (test code = 43D) 4.1 mg/dL 2.7-4.6 CARDIAC [id number] 02:53:00 Test Item Value Reference Range Interpretation Comments TROPONIN I (test code = A84) <0.015 ng/mL 0.000-0.045 ALCOHOL BLOOD (ETOH)2019-04-16 02:51:00 Test Item Value Reference Range Interpretation Comments ETOH (test code = HALC) ETHANOL The result is to be used only for medical purposes ALCOHOL (test code = <10 mg/dL <=10 56A) LIVER [id number] 02:45:00 Test Item Value Reference Range Interpretation [...] = 31A) 46 IU/L <=78 COMPREHENSIVE METABOLIC [id number] 02:40:00 Test Item Value Reference Range Interpretation [...] 46 IU/L <=78 XR CHEST 1 VIEW [id number] 02:38:17Xray Chest 1 viewsLocation Code: [id number]: None availableCLINICAL HISTORY: Cough.Findings: The c ardiomediastinal [...] bronchovascular crowding versus early infiltratePRO TIME AND [id number] 02:38:00 Test Item Value Reference Range Interpretation [...] = 43D) 3.9 mg/dL 2.7-4.6 DRUGS OF [id number] 02:33:00 Test Item Value Reference Range Interpretation [...] ng/mL Barbiturates 200 ng/mL Opiates 2000 ng/mL [id number] 02:33:00 Test Item Value Reference Range Interpretation [...] 48A) 1.4 mg/dL 1.8-2.4 LL LACTIC ACID 2019-04-15 22:53:00 Test Item Value Reference Range Interpretation Comments LACTIC ACD (test code = LA) 0.9 mmol/L 0.4-2.0 COMPREHENSIVE METABOLIC HENDRICKS *WW*2019-04-15 22:52:00 Test Item Value Reference Range Interpretation [...] 31A) 47 IU/L <=78 CBC (INCLUDES AUTOMATED DIFFERENTIAL)*[id number] 22:25:00 Test Item Value Reference Range Interpretation [...] WRBCMOR) CBC W Auto Differential panel - [id number] 06:30:00 Test Item Value Reference Range Interpretation Comments white blood count (test code = 3.2 K/uL 4.0-12.3 L white blood count) red blood count (test code = red 4.29 M/uL 3.80-5.80 blood count) hemoglobin (test code = 14.5 g/dL 11.7-17.2 hemoglobin) hematocrit (test code = 44.0 % 35.0-51.0 hematocrit) Erythrocyte mean corpuscular 102.6 fL 83-100 H volume [Entitic volume] (test code = 35911-9) Erythrocyte mean corpuscular 33.8 pg 26.8-33.4 H hemoglobin [Entitic mass] (test code = 52126-6) mean corpuscular HGB conc (test 33.0 g/dL 30-35 code = mean corpuscular HGB conc) red cell distribution width (test 13.1 % 12.0-14.0 code = red cell distribution width) platelet count (test code = 111 K/uL 175-450 L platelet count) mean platelet volume (test code = 10.7 fL 9.4-12.6 mean platelet volume) Neutrophils.segmented/100 58.1 % 44.7-82.4 leukocytes in Blood (test code = 05173-3) Ig% (test code = Ig%) 0.3 % 0.0-0.4 lymphocyte% (test code = 23.6 % 10.0-50.0 lymphocyte%) Monocytes/100 leukocytes in Blood 14.9 % 3.9-13.4 H by Automated count (test code = 5905-5) Eosinophils/100 leukocytes in 2.5 % 0.0-6.4 Blood by Automated count (test code = 713-8) Basophils/100 leukocytes in 0.6 % 0.2-1.2 Unspecified specimen (test code = 96950-2) absolute neutrophil count (test 1.87 K/uL 1.78-5.38 code = absolute neutrophil count) Ig# (test code = Ig#) 0.0 K/uL 0.0-0.03 Lymphocytes [#/volume] in 0.8 K/uL 1.32-3.57 L Unspecified specimen by Automated count (test code = 42558-8) mono # (test code = mono #) 0.48 K/uL 0.30-0.82 eos # (test code = eos #) 0.08 K/uL 0.04-0.54 basophil # (test code = basophil 0.02 K/uL 0.01-0.08 #) NRBC% (test code = NRBC%) 0 /100 WBC 0-0.2 NRBC# (test code = NRBC#) 0 K/uL [facility], [id number] 06:30:00 NeutrophilsBandLymphocyteMonocyteMetamyelocytePlatelet EstimateToxic VacuolationGiant PlateletsMaLaird HospitalBasic metabolic 2000 panel - Serum or [id number] 06:30:00 Test Item Value Reference Range Interpretation [...] code = calcium 9.2 mg/dL 8.8-10.2 level) [facility]
[2022-06-02] MEDS ORDERED: ALBUTEROL 2.5 MG/3 ML NEB SOL ONE (14:00)
[2022-06-02] MEDS ORDERED: METHYLPREDNISOLONE 125 MG INJ ONE (14:00)
[2022-06-02] MEDS ORDERED: IPRATROPIUM BROM 0.5MG/2.5ML ONE (14:00)
[2022-06-02] MEDS ORDERED: ASPIRIN 81 MG CHEWABLE TABLET ONE (14:00)
[2022-06-02 14:12] LABS: Absolute Lymphocytes (CBC) 0.3 K/uL (0.7-4.9); Hematocrit 36.6 % (39.6-49.0); Lymphocytes % 4.9 % (15.3-44.8); MCV 101.4 fL (80-100); MPV 8.9 fL (7.6-11.3); RBC Red Blood Cell Count 3.61 M/uL (4.33-5.43)
[2022-06-02 14:25] LABS: Potassium 3.4 mmol/L (3.5-5.1)
--- NOTE | 2022-06-02 14:27 | RAD REPORT ---
EXAM DESCRIPTION: RAD - Chest Single View - 06/02/2022 2:18 pm CLINICAL HISTORY: CHEST PAIN COMPARISON: Chest Single View dated 03/03/2022; Chest Single View dated 04/30/2020; CHEST PA AND LAT 2 VIEW dated 01/02/2012 FINDINGS: Lines: Right IJ approach Port-A-Cath with tip overlying the SVC. Lungs: No evidence of edema or pneumonia. Pleural: No significant pleural effusions or pneumothorax. Cardiac: The heart size is within normal limits. Mediastinum: Within normal limits. Bones: No acute fractures. Other: None IMPRESSION: No acute cardiopulmonary disease.
[2022-06-02 14:41] LABS: SARS-COV-2 RT PCR NEGATIVE (NEGATIVE)
--- NOTE | 2022-06-02 15:47 | RAD REPORT ---
EXAM DESCRIPTION: CT - Chest For Pe Angio - 06/02/2022 3:29 pm CLINICAL HISTORY: dyspnea COMPARISON: Thorax W/ Con dated 01/04/2022; Stone Protocol dated 05/05/2022; Ct Skull/Thigh dated 03/16 TECHNIQUE: Dynamically enhanced axial 3 mm thick images of the chest were obtained during administra tion of <100> mL Isovue 370 IV contrast. Coronal and oblique reconstruction images were generated and reviewed. Exam utilizes a protocol for optimal evaluation of pulmonary arterial tree. Maximum intensity projections 3D imaging was utilized All CT scans are performed using dose optimization technique as appropriate and may include automated exposure control or mA/KV adjustment according to patient size. FINDINGS: Chest Wall: No suspicious thyroid nodules or pathologic lymphadenopathy. Right upper chest wall Port-A-Cath. Lungs: Emphysema. No suspicious pulmonary nodules. Pleura: No significant effusions or pneumothorax. Mediastinum/chapito: No pathologic lymphadenopathy. Diffusely thickened esophagus, moderate at the dista l aspect. Pulmonary arteries/Aorta: No filling defect identified. No aortic aneurysm. Heart: No significant pericardial effusion. Normal heart size. Upper abdomen: Probable fatty infiltration along the falciform ligament. Low-attenuation located jim g the medial aspect of segment 3 of the liver is chronic and of doubtful acute clinical significance. Bones: No acute abnormality. Chronic appearing midthoracic compression fractures. Remote left-sided r ib fractures. IMPRESSION: Negative for pulmonary embolism or other acute findings within the chest. Diffusely thic kened esophagus. Emphysema.
--- NOTE | 2022-06-02 16:22 | EDPHYS ---
Physician Documentation [facility] Name: Chacorta Plata Age: 67 yrs Sex: Male : 1955 Arrival Date: 06/02/2022 Time: 13:23 Bed 8 Private MD: ED Physician HPI: 06/02 16:19 This 67 yrs old Male presents to ER via EMS with complaints of dyspnea x 3 jl9 days. . 16:19 Onset: The symptoms/episode began/occurred 3 day(s) ago. The patient has experienced jl9 similar episodes in the past. 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 - Social history:: Smoking status: Patient/guardian denies using tobacco. ROS: 16:20 Constitutional: Negative for fever, chills, and weight loss, Eyes: Negative for injury, jl9 pain, redness, and discharge, ENT: Negative for injury, pain, and discharge, Neck: Negative for injury, pain, and swelling, Cardiovascular: Negative for chest pain, palpitations, and edema. 16:20 Abdomen/GI: Negative for abdominal pain, nausea, vomiting, diarrhea, and constipation, Back: Negative for injury and pain, : Negative for injury, bleeding, discharge, and swelling, MS/Extremity: Negative for injury and deformity, Skin: Negative for injury, rash, and discoloration, Neuro: Negative for headache, weakness, numbness, tingling, and seizure, Psych: Negative for depression, anxiety, suicide ideation, homicidal ideation, and hallucinations, Allergy/Immunology: Negative for hives, rash, and allergies, Endocrine: Negative for neck swelling, polydipsia, polyuria, polyphagia, and marked weight changes, Hematologic/Lymphatic: Negative for swollen nodes, abnormal bleeding, and unusual bruising. 16:20 Respiratory: Positive for shortness of breath. Exam: 16:20 Constitutional: This is a well developed, well nourished patient who is awake, alert, jl9 and in no acute distress. Head/Face: Normocephalic, atraumatic. Eyes: Pupils equal round and reactive to light, extra-ocular motions intact. Lids and lashes normal. Conjunctiva and sclera are non-icteric and not injected. Cornea within normal limits. Periorbital areas with no swelling, redness, or edema. ENT: Mucous membranes moist. Neck: Trachea midline, no thyromegaly or masses palpated, and no cervical lymphadenopathy. Supple, full range of motion without nuchal rigidity, or vertebral point tenderness. No Meningismus. Chest/axilla: Normal chest wall appearance and motion. Nontender with no deformity. No lesions are appreciated. Cardiovascular: Regular rate and rhythm with a normal S1 and S2. No gallops, murmurs, or rubs. Normal PMI, no JVD. No pulse deficits. 16:20 Abdomen/GI: Soft, non-tender, with normal bowel sounds. No distension or tympany. No guarding or rebound. No evidence of tenderness throughout. Back: No spinal tenderness. No costovertebral tenderness. Full range of motion. Skin: Warm, dry with normal turgor. Normal color with no rashes, no lesions, and no evidence of cellulitis. MS/ Extremity: Pulses equal, no cyanosis. Neurovascular intact. Full, normal range of motion. Neuro: Awake and alert, GCS 15, oriented to person, place, time, and situation. Cranial nerves II-XII grossly intact. Motor strength 5/5 in all extremities. Sensory grossly intact. Cerebellar exam normal. Normal gait. Psych: Awake, alert, with orientation to person, place and time. Behavior, mood, and affect are within normal limits. 16:20 Respiratory: mild respiratory distress is noted, Respirations: Breath sounds: decreased breath sounds. Vital Signs: 13:31 BP 158 / 86; Pulse 72; Resp 18; Temp 98.1; Pulse Ox 95% on 3 lpm NC; Weight 61.23 kg; mb9 Height 5 ft. 11 in. (180.34 cm); Pain 10/10; 14:50 BP 139 / 84; Pulse 117; Resp 18; Pulse Ox 98% ; bp 15:42 BP 154 / 87; Pulse 113; Resp 18; Pulse Ox 100% on 3 lpm NC; mb9 16:18 BP 130 / 87; Pulse 105; Resp 17; Pulse Ox 95% on 3 lpm NC; bp 17:10 BP 137 / 106; Pulse 107; Resp 23; Pulse Ox 96% on 3 lpm NC; bp 17:49 BP 141 / 88; Pulse 96; Resp 21; Pulse Ox 99% ; bp 18:31 BP 139 / 87; Pulse 92; Resp 22; Pulse Ox 99% ; bp 13:31 Body Mass Index 18.83 (61.23 kg, 180.34 cm) mb9 MDM: 13:26 Patient medically screened. jl9 16:20 Differential Diagnosis sepsis, COPD. Data reviewed: vital signs, nurses notes, lab test jl9 result(s). Test interpretation: by ED physician or midlevel provider: ECG. Counseling: I had a detailed discussion with the patient and/or guardian regarding: the historical points, exam findings, and any diagnostic results supporting the discharge/admit diagnosis, lab results, radiology results, the need for further work-up and treatment in the hospital, to return to the emergency department if symptoms worsen or persist or if there are any questions or concerns that arise at home. Physician consultation: Jarred Hernandez MD was called at 16:21, was contacted at 16:21, and will see patient in ED. 06/02 13:36 Order name: Basic Metabolic Panel; Complete Time: 14:33 06/02 13:36 Order name: CBC with Diff; Complete Time: 14:33 06/02 13:36 Order name: D-Dimer; Complete Time: 14:33 06/02 13:36 Order name: Troponin HS; Complete Time: 14:33 06/02 13:36 Order name: COVID-19/FLU A+B/RSV; Complete Time: 14:54 06/02 13:36 Order name: XRAY Chest (1 view); Complete Time: 14:33 06/02 13:36 Order name: EKG; Complete Time: 13:37 06/02 13:36 Order name: Cardiac monitoring; Complete Time: 13:38 06/02 13:36 Order name: EKG - Nurse/Tech; Complete Time: 14:06 9 06/02 14:55 Order name: CT Chest For PE Angio; Complete Time: 15:51 9 06/02 13:36 Order name: IV Saline Lock; Complete Time: 14:06 9 06/02 13:36 Order name: Labs collected and sent; Complete Time: 13:50 jl9 Administered Medications: 14:00 Drug: Aspirin Chewable Tablet 324 mg Route: PO; bp 18:32 Follow up: Response: No adverse reaction bp 14:09 Drug: SOLU-Medrol (methylPrednisoLONE) 125 mg Route: IVP; Site: right antecubital; bp 18:32 Follow up: Response: No adverse reaction bp 14:09 Drug: Albuterol - atroVENT (ipratropium) (3:1) (2.5 mg - 0.5 mg) 3 ml Route: Nebulizer; bp 18:32 Follow up: Response: No adverse reaction bp Disposition Summary: 06/02/22 17:32 Transfer Ordered Transfer Location: [facility] jl9 Reason: Higher level of care jl9 Condition: Fair(06/02/22 17:32) jl9 Problem: new(06/02/22 17:32) jl9 Symptoms: are unchanged(06/02/22 17:32) jl9 Accepting Physician: .(06/02/22 21:30) tw5 Diagnosis - COPD/ Chronic obstructive pulmonary disease with (acute) exacerbation(06/02/22 jl9 17:32) Forms: - Medication Reconciliation Form jl9 - SBAR form jl9 Signatures: Dispatcher [employer] EDMiky Aguilar RN RN Nuvia Navarrete tw5 Eugene Price9 Zulay Capellan RN RN mb9 Corrections: (The following items were deleted from the chart) 17:30 16:21 Observation jl9 jl9 17:30 16:21 Jarred Hernandez jl9 jl9 17:30 16:21 Telemetry/MedSurg (observation) jl9 jl9 17:30 16:21 Fair jl9 jl9 17:30 16:21 new jl9 jl9 17:30 16:21 are unchanged jl9 jl9 17:30 16:21 Standard jl9 jl9 17:30 16:21 jl9 jl9 17:30 16:21 COPD/ Chronic obstructive pulmonary disease with (acute) exacerbation jl9 jl9 21:30 17:32 . jl9 tw5
--- NOTE | 2022-06-02 16:22 | ER ---
Nurse's Notes [facility] Name: Chacorta Plata Age: 67 yrs Sex: Male : 1955 Arrival Date: 06/02/2022 Time: 13:23 Bed 8 Private MD: Diagnosis: COPD/ Chronic obstructive pulmonary disease with (acute) exacerbation Presentation: 06/02 13:31 Chief complaint: EMS states: pt has weakness and SOB for the past 3 days. EMS states pt mb9 was 80% on room air on arrival. Pt states having nausea, vomiting, and diarrhea for the past day. Pt states he is also having chest pain for a few weeks. EMS states they gave the pt 4mg of Zofran. Coronavirus screen: Client denies travel out of the [place] in the last 14 days. Ebola Screen: No symptoms or risks identified at this time. Initial Sepsis Screen: Does the patient meet any 2 criteria? No. Patient's initial sepsis screen is negative. Does the patient have a suspected source of infection? No. Patient's initial sepsis screen is negative. Risk Assessment: Do you want to hurt yourself or someone else? Patient reports no desire to harm self or others. Onset of symptoms was May 30, 2022. 13:31 Method Of Arrival: EMS: [facility] mb9 13:31 Acuity: JESSIE 2 mb9 Triage Assessment: 13:45 General: Appears distressed, uncomfortable, unkempt, Behavior is cooperative, bp appropriate for age, anxious. Pain: Complains of pain in chest. EENT: No deficits noted. Neuro: No deficits noted. Cardiovascular: Rhythm is sinus tachycardia. Respiratory: Airway is patent Respiratory effort is labored. GI: No signs and/or symptoms were reported involving the gastrointestinal system. : No signs and/or symptoms were reported regarding the genitourinary system. Derm: No deficits noted. Musculoskeletal: No deficits noted. 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 - Social history:: Smoking status: Patient/guardian denies using tobacco. Screenin:52 Abuse screen: Denies threats or abuse. Denies injuries from another. Nutritional bp screening: No deficits noted. Tuberculosis screening: No symptoms or risk factors identified. Fall Risk None identified. Assessment: 13:38 General: Appears distressed, uncomfortable, Behavior is anxious. Pain: Complains of mb9 pain in chest Pain does not radiate. Pain currently is 10 out of 10 on a pain scale. Quality of pain is described as burning. Neuro: Level of Consciousness is awake, alert, obeys commands, Oriented to person, place, time, situation, Appropriate for age. Cardiovascular: Reports chest pain, shortness of breath, Heart tones S1 S2 present. Respiratory: Reports shortness of breath cough that is non-productive, Airway is patent Respiratory effort is even, unlabored, Respiratory pattern is regular, symmetrical. GI: Abdomen is flat, Bowel sounds present X 4 quads. Abd is soft and non tender X 4 quads. Reports diarrhea, nausea, vomiting. : [place] in place Urine is cloudy. EENT: No signs and/or symptoms were reported regarding the EENT system. Derm: Skin is intact, Skin is dry, Skin is normal, Skin temperature is warm. Musculoskeletal: Range of motion: intact in all extremities. 15:40 Pain: Complains of pain in chest Quality of pain is described as burning. Neuro: Level mb9 of Consciousness is awake, alert, obeys commands, Oriented to person, place, time, situation, Appropriate for age. Cardiovascular: Rhythm is regular. Respiratory: Airway is patent. Derm: Skin is pink, warm \T\ dry. 15:41 Reassessment: pt continues to have chest pain. Eugene Price NP notified. mb9 16:18 Reassessment: No changes from previously documented assessment. Patient and/or family bp updated on plan of care and expected duration. Pain level reassessed. 17:10 Reassessment: ADMIT INITIATED. bp 17:49 Reassessment: No changes from previously documented assessment. Patient and/or family bp updated on plan of care and expected duration. Pain level reassessed. DISPO CHANGED TO TRANSFER, PROCESS INITIATED. 18:31 Reassessment: Patient appears in no apparent distress at this time. Patient and/or bp family updated on plan of care and expected duration. Pain level reassessed. TRANSFER TO [facility] ACCEPTED. BED ASSIGNMENT PENDING Patient states symptoms have improved. 19:06 Reassessment: Report given to Nuvia GARCIA. mb9 20:29 General: Attempted to call report. No answer from [phone]. Calling Transfer center tw5 again. . 20:29 General: Transfer center not answering at this time. Been on the phone for 3 min. . tw5 20:42 General: Attempted to call report to [facility] again. Nurse was busy. Gave them my call tw5 back number. . 21:30 General: Gave report to [facility] Nurse. tw5 Vital Signs: 13:31 BP 158 / 86; Pulse 72; Resp 18; Temp 98.1; Pulse Ox 95% on 3 lpm NC; Weight 61.23 kg; mb9 Height 5 ft. 11 in. (180.34 cm); Pain 10/10; 14:50 BP 139 / 84; Pulse 117; Resp 18; Pulse Ox 98% ; bp 15:42 BP 154 / 87; Pulse 113; Resp 18; Pulse Ox 100% on 3 lpm NC; mb9 16:18 BP 130 / 87; Pulse 105; Resp 17; Pulse Ox 95% on 3 lpm NC; bp 17:10 BP 137 / 106; Pulse 107; Resp 23; Pulse Ox 96% on 3 lpm NC; bp 17:49 BP 141 / 88; Pulse 96; Resp 21; Pulse Ox 99% ; bp 18:31 BP 139 / 87; Pulse 92; Resp 22; Pulse Ox 99% ; bp 13:31 Body Mass Index 18.83 (61.23 kg, 180.34 cm) mb9 ED Course: 13:23 Patient arrived in ED. eb 13:25 Arm band placed on. mb9 13:26 Eugene Price is PHCP. jl9 13:30 Miky Ortiz, RN is Primary Nurse. bp 13:30 Primary Nurse role handed off by Miky Ortiz, RADHA mb9 13:30 Zulay Capellan, RADHA is Primary Nurse. mb9 13:31 Primary Nurse role handed off by Zulay Capellan RN bp 13:31 Miky Ortiz, RADHA is Primary Nurse. bp 13:35 Triage completed. mb9 13:50 Initial lab(s) drawn, by me, sent to lab. mw1 14:07 EKG done, COVID swab sent to lab. mw1 14:20 XRAY Chest (1 view) In Process Unspecified. EDMS 14:52 Patient has correct armband on for positive identification. Bed in low position. Call bp light in reach. Side rails up X2. 15:30 CT Chest For PE Angio In Process Unspecified. EDMS 16:21 Jarred Hernandez MD is Hospitalizing Provider. jl9 17:56 initiated a transfer with MERLIN Costa from [facility]. eb 18:24 administrative approval given by MERLIN Costa/ patient has been accepted to [facility] eb 16 tower bed 1609/ Dr. Edith Gillespie has accepted the patient in transfer/ report to be called to [phone]. 20:56 Primary Nurse role handed off by Miky Ortiz, RADHA 21:30 No provider procedures requiring assistance completed. Patient transferred, IV remains tw5 in place. Administered Medications: 14:00 Drug: Aspirin Chewable Tablet 324 mg Route: PO; bp 18:32 Follow up: Response: No adverse reaction bp 14:09 Drug: SOLU-Medrol (methylPrednisoLONE) 125 mg Route: IVP; Site: right antecubital; bp 18:32 Follow up: Response: No adverse reaction bp 14:09 Drug: Albuterol - atroVENT (ipratropium) (3:1) (2.5 mg - 0.5 mg) 3 ml Route: Nebulizer; bp 18:32 Follow up: Response: No adverse reaction bp Medication: 21:29 VIS not applicable for this client. tw5 Outcome: 16:21 Decision to Hospitalize by Provider. jl9 17:32 ER care complete, transfer ordered by . jl9 21:07 Transferred by ground EMS to [facility], Transfer form completed. tw5 Note: bedside report to ems 21:07 Condition: stable 21:07 Instructed on the need for transfer. 21:30 Patient left the ED. tw5 Signatures: Dispatcher [employer] EDMS Waits, Jose Juan mw1 Miky Ortiz RN RN bp Laly Clarke Wendy wm Wood, Tiffany tw5 Eugene Price9 Zulay Capellan RN RN mb9 Corrections: (The following items were deleted from the chart) 13:42 13:31 Acuity: JESSIE 3 mb9 mb9 16:47 15:42 BP 154 / 87; Pulse 113bpm; Resp 18bpm; Pulse Ox 100% RA; mb9 mb9
[2022-06-02 22:13] VITALS: TEMP 98.1
[2022-06-02 22:19] VITALS: O2SAT 99
[2022-06-02 22:20] VITALS: BP 139/87
--- NOTE | 2022-06-03 19:12 | EKG ---
Test Date: 2022-06-02 Test Time: 14:01:11 Car Attendant: SHIMON MEASUREMENT RESULTS: Intervals: Rate: 71 MS: 116 QRSD: 76 QT: 416 QTc: 452 [place]: P: 63 MS: 116 QRS: 44 T: 79 INTERPRETIVE STATEMENTS: Normal sinus rhythm Possible Inferior infarct, age undetermined Abnormal ECG Compared to ECG 06/28/2018 10:56:34 Myocardial infarct finding now present Sinus bradycardia no longer present Electronically Signed On 06-03-22 19:10:25 [employer]ADESHOW WORKER by Ceasar Petty
== END 2022-06-02 21:30 | disposition short-term general hospital (02) ==
LOC: ER 13:22
DX: J44.1 Chronic obstructive pulmonary disease with (acute) exacerbation (principal); Z85.118 Personal history of other malignant neoplasm of bronchus and lung; Z20.822 Contact with and (suspected) exposure to COVID-19
CPT/HCPCS: 93005; 85025; 80048; 36415; 85379; 84484; 0241U; 71275; 71045; 94640; 96374; 99285; Q9967; J2930; J7613; J7644